=== PATIENT | female | born 1985 ===

== ENCOUNTER 2017-07-16 14:19 | Inpatient (IN) | payer MEDICARE ==
[~2017-07-16] VITALS: Ht 167.6 cm; Wt 59.0 kg
--- NOTE | 2017-07-16 14:22 | ER Report ---
History and Physical Time Seen By MD: 14:21 (DRAKE RETANA MD) HPI/ROS CHIEF COMPLAINT: Unable to eat or drink for the last 4 days HISTORY OF PRESENT ILLNESS:Patient is a 31-year-old female who is visiting [place] from [facility]. She is visiting her cousin who she has not seen in quite some time. 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 This is a potentially life-threatening vascular form of the syndrome which apparently lacks the classic hypermobility but the patient may be predisposed to arterial rupture, intestinal rupture uterine rupture. Patient did not bring any of her medications to the emergency department we are having her call her cousin so that we can get a list of medications. She is also going to sign a consent so we may obtain records from her hospital. I will also see if she has a direct phone number to her primary care provider or the provider who takes care of her Ehler Danlos REVIEW OF SYSTEMS: Constitutional: Subjective fevers no chills Eyes: No discharge. ENT: No sore throat. Dry mouth Cardiovascular: Chest pain and fast heart rate Respiratory: No cough, no shortness of breath. Gastrointestinal: Abdominal pain with nausea and vomiting Genitourinary: No hematuria. Musculoskeletal: Diffuse body aches Skin: No rashes. Neurological: No headache. (DRAKE RETANA MD) Allergies: Coded Allergies: Sulfa (Sulfonamide Antibiotics) (Verified Allergy, Severe, 07/16/17) adhesive tape (Verified Allergy, Severe, 07/16/17) azithromycin (Verified Allergy, Severe, 07/16/17) ketamine (Verified Allergy, Severe, ANAPHYLAXIS, 07/16/17) metoclopramide (Verified Allergy, Severe, 07/16/17) vancomycin (Verified Allergy, Severe, 07/16/17) IV VANCOMYCIN; PATIENT CAN TAKE ORAL erythromycin base (Verified Allergy, Unknown, 07/17/17) Home Meds Reported Medications Naphazoline/Pheniramine (NAPHCON-A EYE DROPS) 15 Ml Soln, 2 GTT OU BID Y for itchy eyes 07/16/17 Ondansetron (ONDANSETRON ODT) 8 Mg Tab.rapdis, 8 MG PO Q6H Y for NAUSEA, TAB 07/16/17 Morphine Sulfate 20 MG/ML Oral Solution (ROXANOL 20 MG/ML) 100 Mg/5 Ml Solution , 20 MG PO Q8H Y for PAIN, ML 07/16/17 Hydrocortisone (Hydrocortisone) 1 % Cream..g., TP BID 07/16/17 Morphine Sulfate 20 MG/ML Oral Solution (ROXANOL 20 MG/ML) 100 Mg/5 Ml Solution , 60 MG PO TID, ML 07/16/17 Sucralfate (SUCRALFATE) 1 Gm Tablet, 1 GM PO QID 07/16/17 Vancomycin Hcl (VANCOMYCIN HCL) 125 Mg Capsule, 125 MG PO Q8H, CAPSULE Has on hand to take as needed with C. difficile infection. Not taking now. 07/16/17 Pyridostigmine [place]ank[place] (PYRIDOSTIGMINE BROMIDE) 60 Mg Tablet, 60 MG PO BID 07/16/17 Budesonide/Formoterol Fumarate (SYMBICORT 160-4.5 MCG INHALER) 10.2 Gm Inh, 2 PUFF INH BID, INH 07/16/17 Omeprazole (OMEPRAZOLE) 20 Mg Capsule.dr, 1 CAP PO BID, CAP 07/16/17 Dicyclomine Hcl (DICYCLOMINE HCL) 20 Mg Tablet, 20 MG PO Q6H 07/16/17 Lubiprostone (AMITIZA) 24 Mcg Capsule, 24 MCG PO BID, CAPSULE 07/16/17 Levothyroxine Sodium (LEVOTHYROXINE SODIUM) 50 Mcg Tablet, 25 MCG PO QDAY, TAB 07/16/17 Diphenhydramine Hcl (DIPHENHYDRAMINE HCL) 25 Mg Capsule, 25-50 MG PO Q4H for itching., CAPSULE 07/16/17 Pregabalin (LYRICA) 150 Mg Capsule, 150 MG PO TID, CAPSULE 07/16/17 Linaclotide (LINZESS) 145 Mcg Capsule, 145 MCG PO DAILY, CAPSULE 07/16/17 Olanzapine (OLANZAPINE) 10 Mg Tablet, 10 MG PO HS 07/16/17 Potassium Chloride (POTASSIUM CHLORIDE) 10 Meq Capsule.er, 10 MEQ PO DAILY 07/16/17 Lorazepam (LORAZEPAM) 1 Mg Tab, 1 TAB PO TID Y for SEIZURE, TAB 07/16/17 Clobetasol Propionate/Emoll (CLOBETASOL EMOLLIENT 0.05% CRM) 15 Gm Cream..g., 0 TP BID 07/16/17 Lipase/Protease/Amylase (CREON DR 6,000 UNITS CAPSULE) 1 Each Capsule.dr, 1 EACH PO 07/16/17 Mirtazapine (MIRTAZAPINE) 15 Mg Tablet, 15 MG PO HS 07/16/17 Naloxone HCl (Narcan) 4 Mg/Actuation [place], 1 SPRAY NS Y for narcotic overdose 07/16/17 Levetiracetam (LEVETIRACETAM) 500 Mg Tab.er.24h, 500 MG PO BID, TAB 07/16/17 Promethazine Hcl (PROMETHAZINE HCL) 25 Mg Tablet, 25 MG PO Q6H Y for NAUSEA, TAB 07/16/17 Ondansetron (ONDANSETRON ODT) 4 Mg Tab.rapdis, 4 MG PO Q8H Y for NAUSEA 07/16/17 Discontinued Reported Medications Hydrocortisone 2.5% Oint (HYDROCORTISONE 2.5% OINT) 453.6 Gm Oint...g., 453.6 GM TP, TUBE 07/16/17 Morphine Sulfate Oral Sln (MORPHINE SULFATE ORAL SLN) 10 Mg/5 Ml Solution, 10 MG PO, ML 07/16/17 Morphine Sulfate (MORPHINE SULFATE) 100 Mg/4 Ml Soln, 100 MG IVPB 07/16/17 Ondansetron (ZOFRAN ODT) 4 Mg Tab.rapdis, 8 MG PO Q12H, TAB.DULCE 07/16/17 Past Medical/Surgical History Either Danlos-type 4. History of multiple abdominal surgeries secondary to the aforementioned Ehler Danlos. Recent diagnosis of endocarditis 8 months ago. 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 She has a history of tremors and seizures. (DRAKE RETANA MD) Constitutional Vital Sign - Last 24 Hours 07/16/17 07/16/17 07/16/17 07/16/17 14:30 14:36 14:39 14:49 Temp 98.9 Pulse 116 118 122 Resp 30 19 B/P (MAP) 126/111 (116) 126/111 Pulse Ox 98 96 O2 Delivery Room Air 07/16/17 07/16/17 07/16/17 07/16/17 14:59 15:00 15:09 15:19 Pulse 118 112 107 Resp 23 9 21 B/P (MAP) 123/113 (116) Pulse Ox 96 98 91 5/607/16/17 07/16/17 07/16/17 15:29 15:30 15:39 16:02 Pulse 107 96 Resp 16 17 B/P (MAP) 111/82 (92) 127/85 (99) Pulse Ox 91 94 07/16/17 07/16/17 07/16/17 07/16/17 16:09 16:14 16:24 16:29 Pulse 89 92 85 87 Resp 20 15 Pulse Ox 94 95 94 98 07/16/17 07/16/17 07/16/17 16:30 16:59 17:00 Pulse 80 Resp 26 B/P (MAP) 115/88 (97) 122/89 (100) Pulse Ox 95 Intake and Output 07/16/17 07/16/17 07/17/17 14:59 22:59 06:59 Intake Total 1105 ml Balance 1105 ml (LAURORA,BETH V DO) Physical Exam General/Constitutional: Patient is awake, somnolent, but responsive. Patient with dry cracked lips. Head: Normocephalic and atraumatic. Eyes: Conjunctival clear, Pupils are equal and reactive to light. Extraocular muscles are intact and symmetrical. Sclera are clear and anicteric. Ears:External canals are clear. Tympanic membranes are clear with normal landmarks and light reflex. Nares: No rhinorrhea or bleeding. Turbinates are pink and moist. Oropharyngeal: Mucous membranes are moist. There is no pharyngeal erythema or exudate. There are no palatal petechiae. Uvula is midline and symmetrical. Neck: Supple, no adenopathy. Cardiovascular: Heart is regular rate and rhythm without audible murmurs, rubs or gallops. Pulmonary: Lungs are clear to auscultation bilaterally. There are no wheezes, rales, or rhonchi. Chest rise is symmetrical. She has diffuse chest wall tenderness. Abdomen: Diffuse abdominal pain without overt peritoneal sounds Extremities: No gross deformities, No peripheral cyanosis. Able to move all 4 extremities. Patient with a hyper flexibility at the joints Neuro: Alert and oriented X3, Cranial nerves 2 thru 12 are intact and symmetrical. Gait function was not tested Skin: No rashes, skin is warm dry and well perfused. Multiple abdominal scars (DRAKE RETANA MD) Medical Decision Making Data Points Result Diagram: 07/18/1752707/18/17527 Laboratory Hematology Test 07/16/17 13:50 07/16/17 14:28 07/16/17 14:50 Urine Opiates Screen Positive Urine Barbiturates Screen Negative Ur Tricyclic Antidepressants Screen Negative Urine Phencyclidine Screen Negative Urine Amphetamines Screen Negative Urine Benzodiazepines Screen Negative Urine Cocaine Screen Negative Urine Cannabinoids Screen Positive Urine Color Yellow Urine Clarity Slightly-cloudy Urine pH 5.0 pH (4.8-9.5) Urine Specific [place] 1.020 Urine Protein Negative mg/dL (NEGATIVE) Urine Glucose (UA) Negative mg/dL (NEGATIVE) Urine Ketones Trace mg/dL (NEGATIVE) Urine Blood Negative (NEGATIVE) Urine Nitrite Negative (NEGATIVE) Urine Bilirubin Negative (NEGATIVE) Urine Urobilinogen 2.0 mg/dL (0.2-1.9) Urine Leukocyte Esterase Negative (NEGATIVE) Urine RBC None /HPF (0-2/HPF) Urine WBC 5 /HPF (0-5/HPF) Urine Squamous Epithelial Cells Many /LPF (</=FEW) Urine Bacteria Few /HPF (NONE-FEW) Urine Mucus Few /HPF (NONE-FEW) Red Blood Count 4.93 M/uL (4.17-5.56) Mean Corpuscular Volume 85.3 fL (80.0-96.0) Mean Corpuscular Hemoglobin 28.5 pg (26.0-33.0) Mean Corpuscular Hemoglobin Concent 33.4 g/dL (32.0-36.0) Red Cell Distribution Width 12.5 % (11.5-14.5) Mean Platelet Volume 8.5 fL (7.2-11.1) Neutrophils (%) (Auto) 74.8 % (39.4-72.5) Lymphocytes (%) (Auto) 17.5 % (17.6-49.6) Monocytes (%) (Auto) 7.1 % (4.1-12.4) Eosinophils (%) (Auto) 0.3 % (0.4-6.7) Basophils (%) (Auto) 0.3 % (0.3-1.4) Nucleated RBC Relative Count (auto) 0.1 /100WBC Neutrophils # (Auto) 6.0 K/uL (2.0-7.4) Lymphocytes # (Auto) 1.4 K/uL (1.3-3.6) Monocytes # (Auto) 0.6 K/uL (0.3-1.0) Eosinophils # (Auto) 0.0 K/uL (0.0-0.5) Basophils # (Auto) 0.0 K/uL (0.0-0.1) Nucleated RBC Absolute Count (auto) 0.00 K/uL Prothrombin Time 13.8 seconds (12.0-14.4) Prothromb Time International Ratio 1.05 Activated Partial Thromboplast Time 62 seconds (23-35) Sodium Level 144 mmol/L (137-145) Potassium Level 3.5 mmol/L (3.5-5.0) Chloride Level 102 mmol/L (98-107) Carbon Dioxide Level 24 mmol/L (22-31) Blood Urea Nitrogen 18 mg/dl (7-18) Creatinine 0.60 mg/dl (0.52-1.04) Glomerular Filtration Rate Calc > 60.0 Random Glucose 104 mg/dl (75-110) Lactate 1.7 mmol/L (0.7-2.1) Calcium Level 9.9 mg/dl (8.4-10.2) Magnesium Level 2.3 mg/dl (1.7-2.2) Total Bilirubin 0.8 mg/dl (0.2-1.3) Aspartate Amino Transf (AST/SGOT) 22 U/L (0-35) Alanine Aminotransferase (ALT/SGPT) 20 U/L (0-56) Alkaline Phosphatase 87 U/L (0-126) Total Creatine Kinase < 20 U/L (30-135) Troponin I < 0.012 ng/ml Total Protein 8.3 gm/dl (6.3-8.2) Albumin 4.5 g/dl (3.5-5.0) Lipase 28 U/L (23-300) Human Chorionic Gonadotropin, Qual Negative (NEGATIVE) Serum Alcohol < 10 mg/dl Chemistry Test 07/16/17 13:50 07/16/17 14:28 07/16/17 14:50 Urine Opiates Screen Positive Urine Barbiturates Screen Negative Ur Tricyclic Antidepressants Screen Negative Urine Phencyclidine Screen Negative Urine Amphetamines Screen Negative Urine Benzodiazepines Screen Negative Urine Cocaine Screen Negative Urine Cannabinoids Screen Positive Urine Color Yellow Urine Clarity Slightly-cloudy Urine pH 5.0 pH (4.8-9.5) Urine Specific [place] 1.020 Urine Protein Negative mg/dL (NEGATIVE) Urine Glucose (UA) Negative mg/dL (NEGATIVE) Urine Ketones Trace mg/dL (NEGATIVE) Urine Blood Negative (NEGATIVE) Urine Nitrite Negative (NEGATIVE) Urine Bilirubin Negative (NEGATIVE) Urine Urobilinogen 2.0 mg/dL (0.2-1.9) Urine Leukocyte Esterase Negative (NEGATIVE) Urine RBC None /HPF (0-2/HPF) Urine WBC 5 /HPF (0-5/HPF) Urine Squamous Epithelial Cells Many /LPF (</=FEW) Urine Bacteria Few /HPF (NONE-FEW) Urine Mucus Few /HPF (NONE-FEW) White Blood Count 8.0 k/uL (4.5-11.0) Red Blood Count 4.93 M/uL (4.17-5.56) Hemoglobin 14.0 g/dL (12.0-16.0) Hematocrit 42.1 % (34.0-47.0) Mean Corpuscular Volume 85.3 fL (80.0-96.0) Mean Corpuscular Hemoglobin 28.5 pg (26.0-33.0) Mean Corpuscular Hemoglobin Concent 33.4 g/dL (32.0-36.0) Red Cell Distribution Width 12.5 % (11.5-14.5) Platelet Count 266 K/uL (150-450) Mean Platelet Volume 8.5 fL (7.2-11.1) Neutrophils (%) (Auto) 74.8 % (39.4-72.5) Lymphocytes (%) (Auto) 17.5 % (17.6-49.6) Monocytes (%) (Auto) 7.1 % (4.1-12.4) Eosinophils (%) (Auto) 0.3 % (0.4-6.7) Basophils (%) (Auto) 0.3 % (0.3-1.4) Nucleated RBC Relative Count (auto) 0.1 /100WBC Neutrophils # (Auto) 6.0 K/uL (2.0-7.4) Lymphocytes # (Auto) 1.4 K/uL (1.3-3.6) Monocytes # (Auto) 0.6 K/uL (0.3-1.0) Eosinophils # (Auto) 0.0 K/uL (0.0-0.5) Basophils # (Auto) 0.0 K/uL (0.0-0.1) Nucleated RBC Absolute Count (auto) 0.00 K/uL Prothrombin Time 13.8 seconds (12.0-14.4) Prothromb Time International Ratio 1.05 Activated Partial Thromboplast Time 62 seconds (23-35) Glomerular Filtration Rate Calc > 60.0 Lactate 1.7 mmol/L (0.7-2.1) Calcium Level 9.9 mg/dl (8.4-10.2) Magnesium Level 2.3 mg/dl (1.7-2.2) Total Bilirubin 0.8 mg/dl (0.2-1.3) Aspartate Amino Transf (AST/SGOT) 22 U/L (0-35) Alanine Aminotransferase (ALT/SGPT) 20 U/L (0-56) Alkaline Phosphatase 87 U/L (0-126) Total Creatine Kinase < 20 U/L (30-135) Troponin I < 0.012 ng/ml Total Protein 8.3 gm/dl (6.3-8.2) Albumin 4.5 g/dl (3.5-5.0) Lipase 28 U/L (23-300) Human Chorionic Gonadotropin, Qual Negative (NEGATIVE) Serum Alcohol < 10 mg/dl Coagulation Test 07/16/17 14:50 Prothrombin Time 13.8 seconds Prothromb Time International Ratio 1.05 Activated Partial Thromboplast Time 62 seconds Toxicology Test 07/16/17 13:50 07/16/17 14:50 Urine Opiates Screen Positive Urine Barbiturates Screen Negative Ur Tricyclic Antidepressants Screen Negative Urine Phencyclidine Screen Negative Urine Amphetamines Screen Negative Urine Benzodiazepines Screen Negative Urine Cocaine Screen Negative Urine Cannabinoids Screen Positive Serum Alcohol < 10 mg/dl Urinalysis Test 07/16/17 14:28 Urine Color Yellow Urine Clarity Slightly-cloudy Urine pH 5.0 pH (4.8-9.5) Urine Specific [place] 1.020 Urine Protein Negative mg/dL (NEGATIVE) Urine Glucose (UA) Negative mg/dL (NEGATIVE) Urine Ketones Trace mg/dL (NEGATIVE) Urine Blood Negative (NEGATIVE) Urine Nitrite Negative (NEGATIVE) Urine Bilirubin Negative (NEGATIVE) Urine Urobilinogen 2.0 mg/dL (0.2-1.9) Urine Leukocyte Esterase Negative (NEGATIVE) Urine RBC None /HPF (0-2/HPF) Urine WBC 5 /HPF (0-5/HPF) Urine Squamous Epithelial Cells Many /LPF (</=FEW) Urine Bacteria Few /HPF (NONE-FEW) Urine Mucus Few /HPF (NONE-FEW) (BETH VILLALOBOS DO) EKG/Imaging EKG Interpretation EKG shows sinus tachycardia with nonspecific T-wave abnormality. No prior EKG to compare to ventricular rate is 118 bpm Monitor Interpretation: Sinus Tachycardia (DRAKE RETANA MD) ED Course/Re-evaluation Clinical Indication for ER IV: IV Access ED Course 07/16/2017 3:06:55 pm patient is essentially here for chest and abdominal pain. I spoke with Dr. Veras who is the patient's physician in [facility]. His direct contact number is [phone]. He mentioned that the patient does visit the hospital frequently usually is admitted once a month. She is on high doses of morphine for pain 60 mg 3 times a day and then 20 mg as needed. Unable to take any of her pain medication or her Keppra. We will give the patient 8 mg of Zofran, 2 mg of Dilaudid 500 mg of Keppra IV. We will perform an abdominal workup including a CT of the chest abdomen pelvis. Patient was signed out to Dr. Villalobos at this time. Decision to Disposition Date: July 16, 2017 Decision to Disposition Time: 17:30 (DRAKE RETANA MD) Clinical Indication for ER IV: Hydration, IV Access ED Course 07/16/2017 3:49:40 pm signed out pending labs and ct. Pts labs are completed and appear stable. Pt currently off to CT. 07/16/2017 4:30:46 pm Pts cat scan of chest abdomen and pelvis do not show any acute acitive ds. pts blood pressure and heart rate are normal after the dilaudid 2mg and 1 L nss. bp 127/86 and HR 86. Page out to Dr. Veras to review pts labs and ct and to discuss d/c plan. Pt has not had any vomiting in the emergency department. will attempt ice chips. 07/16/2017 4:52:07 pm Pt requesting a second dose of dialudid and zofran for return of dry heaving. Failed ice chips 07/16/2017 4:54:[address] Veras called back. States that when pt clinically is vomiting and can not taking her medications she needs to be admitted to the hospital for a few days to rest her stomach and is place on TPN. Dr. Veras statse that she uses zofran 8mg IV and Phenergan Im for the nausea. I reviewed her labs with Dr. Veras today and dispite being normal and having her vitals normalized he feels she needs admission for the tpn and fluids. Also requesting we obtain blood culture thru the port since pt did have endocarditis earlier this year. Does not feel pt needs to be on abx due to pt has hx of c. diff. WIll speak with our hospitalist. 07/16/2017 5:18:[address] Roberts agrees to accept pt. Dr. Veras cell # [phone] Dr. Veras office # [phone] Decision to Disposition Date: July 16, 2017 Decision to Disposition Time: 17:18 (BETH VILLALOBOS DO) Depart Departure Latest Vital Signs Vital Signs Date Time Temp Pulse Resp B/P (MAP) Pulse Ox O2 Delivery O2 Flow Rate FiO2 07/16/17 17:00 122/89 (100) 07/16/17 16:59 80 26 95 07/16/17 14:36 98.9 Room Air (BETH VILLALOBOS DO) Impression: Primary Impression: CYCLICAL VOMITING, INTRACTABLE Additional Impressions: Acute abdominal pain Opioid dependence Kenneth-Danlos syndrome type IV Condition: Condition Unchanged Disposition: Admitted from ER Problem Qualifiers Additional Impressions: Opioid dependence Substance use status: uncomplicated Qualified Codes: F11.20 - Opioid dependence, uncomplicated DRAKE RETANA MD July 16, 2017 14:22 BETH VILLALOBOS DO July 16, 2017 15:49
[2017-07-16] MEDS ORDERED: NS(*) 0.9% 1000 ML BAG 1,000 ML IV ONE ×2 (14:50→16:15)
[2017-07-16] MEDS ORDERED: ONDANSETRON 4 MG/2 ML VIAL IVP ONE ×3 (14:50→16:50)
[2017-07-16] MEDS ORDERED: levETIRAcetam(*)500 MG/5 ML VI 500 MG in NS(*) 0.9% 100 ML BAG 100 ML IVPB ONE (14:50)
[2017-07-16] MEDS ORDERED: HYDROmorphone HCL 2 MG/ML SDV IVP ONE ×2 (15:05→16:50)
[2017-07-16] MEDS ORDERED: NS 0.9% 150 ML BAG 150 ML ONE (15:07)
[2017-07-16] MEDS ORDERED: IOPAMIDOL 76% 75 ML INFUS BTL 75 ML ONE (15:07)
--- NOTE | 2017-07-16 15:08 | EKG ---
[place] [facility] [place] KATHY SHAH : [id number] MR: [id number] V: [id number] EXAM DATE: ORDERING PHYSICIAN: DRAKE RETANA TECHNOLOGIST: JERMAINE Test Reason : CP Blood Pressure : / mmHG Vent. Rate : 118 BPM Atrial Rate : 118 BPM P-R Int : 166 ms QRS Dur : 072 ms QT Int : 330 ms P-R-T Axes : 085 069 067 degrees QTc Int : 462 ms Sinus tachycardia Nonspecific T wave abnormality Abnormal ECG No previous ECGs available Confirmed by YAHAIRA JI ([id number]) on 07/16/2017 4:14:30 PM Referred By: LAINEY Confirmed By:YAHAIRA JI
[2017-07-16 15:17] LABS: PLATELET COUNT, AUTOMATED 266 K/uL (150-450)
[2017-07-16 15:19] LABS: INR 1.05
--- NOTE | 2017-07-16 16:24 | RADIOLOGY IMAGING REPORT ---
[facility] PATIENT NAME: Joshua Loyd : 1985 MR: [id number] V: [id number] EXAM DATE: ORDERING PHYSICIAN: DRAKE RETANA TECHNOLOGIST: Location: [facility] [place] Patient: Joshua Loyd : 1985 Visit/Account:[id number] Date of Sevice: 07/16/2017 Examination: CT chest, abdomen, and pelvis with contrast Comparison: None. History: Chest and abdominal pain. Ehler Danlos type 4 Procedure: Multiplanar contrast-enhanced imaging of the chest, abdomen, and pelvis with 75 mL intrave nous Isovue 370. One of the following dose optimization techniques was utilized in the performance of this exam: Automated exposure control; adjustment of the mA and/or kV according to the patient's siz e; or use of an iterative reconstruction technique. Specific details can be referenced in the [facility]'s radiology CT exam operational policy. Findings: CT chest: Mediastinum: Cardiac chamber size is normal. No pericardial effusion. Infusion port. Main pulmonary a rtery size is normal. No thoracic aortic aneurysm. No mediastinal hemorrhage. No thoracic lymph node enlargement. Lungs and pleura: No focal consolidation or pulmonary nodule. No pneumothorax, pulmonary edema, or p leural effusion. Airways: Negative. Diaphragm: Intact. CT abdomen and pelvis: Liver: Negative Gallbladder and biliary system: Negative Spleen: Negative Pancreas: Negative Adrenal glands: Negative Kidneys and urinary bladder: Negative Vessels: Negative Bowel and mesentery: Gastric bypass. No bowel obstruction. Appendectomy. Minimal stool in colon. No b owel or mesenteric inflammation. Pelvic organs: Negative. Free air/free fluid: None Lymph nodes: Negative Abdominal wall and subcutaneous tissues: Abdominal wall is intact. No focal abnormality within the v isualized subcutaneous soft tissues. Osseous structures: Right clavicle internal fixation. Otherwise unremarkable. IMPRESSION: 1. No findings of active disease in the chest, abdomen, or pelvis. 2. Nonacute findings as described above. Report Dictated By: Brett Couch MD at 07/16/2017 4:10 PM Report E-Signed By: Brett Couch MD at 07/16/2017 4:20 PM [id number]
[2017-07-16] MEDS ORDERED: SUCR1TAB51 PO (16:52)
[2017-07-16] MEDS ORDERED: OLAN10TA25 PO (16:52)
[2017-07-16] MEDS ORDERED: DICY20TA70 PO (16:52)
[2017-07-16] MEDS ORDERED: DIPH-464 PO (16:52)
[2017-07-16] MEDS ORDERED: LIPA1CAP59 PO (16:52)
[2017-07-16] MEDS ORDERED: POTA10CA40 PO (16:52)
[2017-07-16] MEDS ORDERED: VANC125C3 PO (16:52)
[2017-07-16] MEDS ORDERED: CLOB15CR22 TP (16:52)
[2017-07-16] MEDS ORDERED: LINA145C PO (16:52)
[2017-07-16] MEDS ORDERED: MIRT-22 PO (16:52)
[2017-07-16] MEDS ORDERED: PREG150C33 PO (16:52)
[2017-07-16] MEDS ORDERED: MORP10SO10 PO (16:52)
[2017-07-16] MEDS ORDERED: ONDA4TAB9 PO (16:52)
[2017-07-16] MEDS ORDERED: BUDE10.2 INH (16:52)
[2017-07-16] MEDS ORDERED: OMEP-125 PO (16:52)
[2017-07-16] MEDS ORDERED: LEVO50TA86 PO (16:52)
[2017-07-16] MEDS ORDERED: PROM-110 PO (16:52)
[2017-07-16] MEDS ORDERED: HYDR453.8 TP (16:52)
[2017-07-16] MEDS ORDERED: LEVE500T75 PO (16:52)
[2017-07-16] MEDS ORDERED: ONDA4TAB PO (16:52)
[2017-07-16] MEDS ORDERED: [UNRECOGNIZED DRUG - CODE] IVPB (16:52)
[2017-07-16] MEDS ORDERED: LOR1 PO (16:52)
[2017-07-16] MEDS ORDERED: NALO4SPR NS (16:52)
[2017-07-16] MEDS ORDERED: PYRI60TA9 PO (16:52)
[2017-07-16] MEDS ORDERED: LUBI24CA14 PO (16:52)
[2017-07-16] MEDS ORDERED: LORazepam 2 MG/ML VIAL IVP PRN (19:20)
[2017-07-16] MEDS ORDERED: INSULIN HUM LISPRO 100 UN/ML 3 ML VIAL SUBQ PRN (19:30)
[2017-07-16] MEDS ORDERED: [UNRECOGNIZED DRUG - OTHER] IV ONE (20:00)
[2017-07-16] MEDS ORDERED: NS(*) 0.9% 1000 ML BAG 1,000 ML IV PRN ×2 (20:05→23:21)
[2017-07-16] MEDS: ONDANSETRON 4 MG/2 ML VIAL IVP PRN (20:12)
[2017-07-16] MEDS: HYDROmorphone HCL 2 MG/ML SDV IVP PRN ×2 (20:12→22:13)
[2017-07-16] MEDS: diphenhydrAMINE 50 MG/ML VIAL IVP PRN (20:13)
[2017-07-16] MEDS ORDERED: MORP100S32 PO ×2 (20:14)
[2017-07-16] MEDS ORDERED: HYDR28.425 TP (20:14)
[2017-07-16] MEDS ORDERED: NAPOD OU (20:30)
[2017-07-16] MEDS ORDERED: ONDA8TAB98 PO (20:30)
[2017-07-16] MEDS: LEVALBUTEROL 1.25 MG/3 ML NEB NEB PRN (20:53)
[2017-07-16] MEDS: BUDESO/FORMOT 160/4.5 MCG 6 GM INH SCH (20:54)
--- NOTE | 2017-07-16 20:56 | History & Physical ---
History of Present Illness Chief Complaint Intractable nausea and vomiting. History of Present Illness The patient is a 31 year old female from [place] with a very complicated medical history. She has been in [place] about 2 weeks visiting a cousin. 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 She had symptoms at but was not correctly diagnosed with genetic testing until she was 23 years of age. The patient states she spends more time in the hospital than out of it. She is supposed to be on chronic TPN therapy 12 hours daily, but could not get this arranged upon arrival to [place]. Per her report, Dr. Veras, Her PCP, recommended she get in touch with Home Health upon arrival to [place] for facilitation of TPN. As she is not home bound, she could not get a Home Health agency to work with her. The patient has recurrent bouts of intractable nausea and vomiting. She has chronic pain due to multiple abdominal surgeries and multiple fractures related to the Kenneth-Danlos syndrome. She is on high doses of oral morphine and when she can not keep it down, she goes into withdrawal. She also has a seizure disorder and takes Keppra. The patient states that for the past 5 days she has had intractable nausea and vomiting. She has not been able to keep her morphine, Keppra, or any of her medications down. She presented to the ER earlier today with tachycardia. After she received a dose of IV Dilaudid, her VS returned to normal. She was given 2 liters of NS in the ER. Her labs were unremarkable. Drs. Canales and Xochilt talked with her physician, Dr. Veras (see ER note for his phone number), who recommended that the patient be admitted for antiemetics and TPN. Per report from Dr. Lemon, Dr. Veras confirmed that the patient is admitted a least monthly with intractable nausea and vomiting. She usually requires a several day stay to get her symptoms under control. He recommended starting TPN. The patient was recently treated for endocarditis. She has had a chronic indwelling port. Records reviewed from [facility] ([facility] ) note that her port was removed on the 28 of April. Her blood cultures grew out Propionibacterium. She completed a course of IV Ertapenem and then had a new port placed on the left. 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 She can not take vancomycin due to multiple bouts of renal failure while taking the drug. Her last bout of MRSA bacteremia was treated with a new drug, Teflaro. History Problems: (1) History of jejunostomy tube placement (2) Hx pulmonary embolism (3) Hx of deep venous thrombosis Status: Resolved (4) Hx of acute renal failure Comment: Due to vancomycin. 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 (16) Neuropathy Status: Chronic (17) Hx of resection of small bowel (18) Hx MRSA infection (19) History of Bar-en-Y gastric bypass (20) Chronic anemia (21) Anxiety and depression Status: Chronic (22) Chronic pain Status: Chronic (23) UNSPECIFIED ASTHMA, UNCOMPLICATED Status: Chronic (24) Seizure disorder Status: Chronic (25) Failure to thrive Home Meds Reported Medications Naphazoline/Pheniramine (NAPHCON-A EYE DROPS) 15 Ml Soln, 2 GTT OU BID Y for itchy eyes 07/16/17 Ondansetron (ONDANSETRON ODT) 8 Mg Tab.rapdis, 8 MG PO Q6H Y for NAUSEA, TAB 07/16/17 Morphine Sulfate 20 MG/ML Oral Solution (ROXANOL 20 MG/ML) 100 Mg/5 Ml Solution , 20 MG PO Q8H Y for PAIN, ML 07/16/17 Hydrocortisone (Hydrocortisone) 1 % Cream..g., TP BID 07/16/17 Morphine Sulfate 20 MG/ML Oral Solution (ROXANOL 20 MG/ML) 100 Mg/5 Ml Solution , 60 MG PO TID, ML 07/16/17 Sucralfate (SUCRALFATE) 1 Gm Tablet, 1 GM PO QID 07/16/17 Vancomycin Hcl (VANCOMYCIN HCL) 125 Mg Capsule, 125 MG PO Q8H, CAPSULE Has on hand to take as needed with C. difficile infection. Not taking now. 07/16/17 Pyridostigmine [place] (PYRIDOSTIGMINE BROMIDE) 60 Mg Tablet, 60 MG PO BID 07/16/17 Budesonide/Formoterol Fumarate (SYMBICORT 160-4.5 MCG INHALER) 10.2 Gm Inh, 2 PUFF INH BID, INH 07/16/17 Omeprazole (OMEPRAZOLE) 20 Mg Capsule.dr, 1 CAP PO BID, CAP 07/16/17 Dicyclomine Hcl (DICYCLOMINE HCL) 20 Mg Tablet, 20 MG PO Q6H 07/16/17 Lubiprostone (AMITIZA) 24 Mcg Capsule, 24 MCG PO BID, CAPSULE 07/16/17 Levothyroxine Sodium (LEVOTHYROXINE SODIUM) 50 Mcg Tablet, 25 MCG PO QDAY, TAB 07/16/17 Diphenhydramine Hcl (DIPHENHYDRAMINE HCL) 25 Mg Capsule, 25-50 MG PO Q4H for itching., CAPSULE 07/16/17 Pregabalin (LYRICA) 150 Mg Capsule, 150 MG PO TID, CAPSULE 07/16/17 Linaclotide (LINZESS) 145 Mcg Capsule, 145 MCG PO DAILY, CAPSULE 07/16/17 Olanzapine (OLANZAPINE) 10 Mg Tablet, 10 MG PO HS 07/16/17 Potassium Chloride (POTASSIUM CHLORIDE) 10 Meq Capsule.er, 10 MEQ PO DAILY 07/16/17 Lorazepam (LORAZEPAM) 1 Mg Tab, 1 TAB PO TID Y for SEIZURE, TAB 07/16/17 Clobetasol Propionate/Emoll (CLOBETASOL EMOLLIENT 0.05% CRM) 15 Gm Cream..g., 0 TP BID 07/16/17 Lipase/Protease/Amylase (ALLYSSA IVERSON 6,000 UNITS CAPSULE) 1 Each Capsule.dr, 1 EACH PO 07/16/17 Mirtazapine (MIRTAZAPINE) 15 Mg Tablet, 15 MG PO HS 07/16/17 Naloxone HCl (Narcan) 4 Mg/Actuation [place], 1 SPRAY NS Y for narcotic overdose 07/16/17 Levetiracetam (LEVETIRACETAM) 500 Mg Tab.er.24h, 500 MG PO BID, TAB 07/16/17 Promethazine Hcl (PROMETHAZINE HCL) 25 Mg Tablet, 25 MG PO Q6H Y for NAUSEA, TAB 07/16/17 Ondansetron (ONDANSETRON ODT) 4 Mg Tab.rapdis, 4 MG PO Q8H Y for NAUSEA 07/16/17 Discontinued Reported Medications Hydrocortisone 2.5% Oint (HYDROCORTISONE 2.5% OINT) 453.6 Gm Oint...g., 453.6 GM TP, TUBE 07/16/17 Morphine Sulfate Oral Sln (MORPHINE SULFATE ORAL SLN) 10 Mg/5 Ml Solution, 10 MG PO, ML 07/16/17 Morphine Sulfate (MORPHINE SULFATE) 100 Mg/4 Ml Soln, 100 MG IVPB 07/16/17 Ondansetron (ZOFRAN ODT) 4 Mg Tab.rapdis, 8 MG PO Q12H, TAB.DULCE 07/16/17 Allergies: Coded Allergies: Sulfa (Sulfonamide Antibiotics) (Verified Allergy, Severe, 07/16/17) adhesive tape (Verified Allergy, Severe, 07/16/17) azithromycin (Verified Allergy, Severe, 07/16/17) ketamine (Verified Allergy, Severe, ANAPHYLAXIS, 07/16/17) metoclopramide (Verified Allergy, Severe, 07/16/17) vancomycin (Verified Allergy, Severe, 07/16/17) IV VANCOMYCIN; PATIENT CAN TAKE ORAL Patient History: Maternal history of systemic lupus erythematosus (SLE) MOTHER Other Social/Family Hx The patient is single and unemployed. She lives in [place] and gets her medical care there. She is visiting a cousin in [place]. Hx Smoking: No Smoking Status: Never Smoker Exposure to Second Hand Smoke?: No Hx Alcohol Use: Yes Hx Substance Use Disorder: No Social Drug Use: Never Other Social Drugs: takes marijuana prescribed/ CBD oil History of IV Drug Use: No Review of Systems All Systems Reviewed/Normal: Yes, Except as Noted Constitutional: No Fever Neurological: Weakness Cardiovascular: No Chest Pain Respiratory: No Shortness of Breath Gastrointestinal: Nausea, Vomiting Musculoskeletal: Pain Psychiatric: Depression, Anxiety Exam Vital Signs Vital Signs Date Time Temp Pulse Resp B/P (MAP) Pulse Ox O2 Delivery O2 Flow Rate FiO2 07/16/17 21:01 75 18 07/16/17 20:54 92 07/16/17 20:54 Room Air 07/16/17 19:18 98.9 General Appearance: Alert, Awake, No Acute Distress, Other (Appears ill.) Neuro: No Gross deficits Eyes: PERRLA Cardiovascular: Regular Rate and Rhythm Respiratory: Clear to Auscultation GI: Abd Soft and Non-Tender, Other (Multiple well healed abdominal scars. ) Lymph: Cervical Nodes Benign Extremities: Warm, Perfused Integumentary: Skin Intact without Lesion / Mass Psych: Appropriate Mood & Affect Medical Decision Making Data Points Result Diagram: 07/16/17 1450 07/16/17 1450 Item Value Date Time Lactate 1.7 mmol/L 07/16/17 1450 Calcium Level 9.9 mg/dl 07/16/17 1450 Magnesium Level 2.3 mg/dl H 07/16/17 1450 Total Bilirubin 0.8 mg/dl 07/16/17 1450 Aspartate Amino Transf (AST/SGOT) 22 U/L 07/16/17 1450 Alanine Aminotransferase (ALT/SGPT) 20 U/L 07/16/17 1450 Alkaline Phosphatase 87 U/L 07/16/17 1450 Total Protein 8.3 gm/dl H 07/16/17 1450 Albumin 4.5 g/dl 07/16/17 1450 Lipase 28 U/L 07/16/17 1450 Total Creatine Kinase < 20 U/L L 07/16/17 1450 Troponin I < 0.012 ng/ml 07/16/17 1450 Human Chorionic Gonadotropin, Qual Negative 07/16/17 1450 Urine Opiates Screen Positive 07/16/17 1350 Urine Barbiturates Screen Negative 07/16/17 1350 Ur Tricyclic Antidepressants Screen Negative 07/16/17 1350 Urine Phencyclidine Screen Negative 07/16/17 1350 Urine Amphetamines Screen Negative 07/16/17 1350 Urine Benzodiazepines Screen Negative 07/16/17 1350 Urine Cocaine Screen Negative 07/16/17 1350 Urine Cannabinoids Screen Positive 07/16/17 1350 Serum Alcohol < 10 mg/dl 07/16/17 1450 Prothrombin Time 13.8 seconds 07/16/17 1450 Prothromb Time International Ratio 1.05 07/16/17 1450 Activated Partial Thromboplast Time 62 seconds H 07/16/17 1450 EKG / Imaging EKG Interpretation [place] [facility] [place] NAME: JOSHUA LOYD : [id number] MR: [id number] V: [id number] EXAM DATE: ORDERING PHYSICIAN: DRAKE CANALES TECHNOLOGIST: JERMAINE Test Reason : CP Blood Pressure : / mmHG Vent. Rate : 118 BPM Atrial Rate : 118 BPM P-R Int : 166 ms QRS Dur : 072 ms QT Int : 330 ms P-R-T Axes : 085 069 067 degrees QTc Int : 462 ms Sinus tachycardia Nonspecific T wave abnormality Abnormal ECG No previous ECGs available Confirmed by YAHAIRA JI ([id number]) on 07/16/2017 4:14:30 PM Referred By: LAINEY Confirmed By:YAHAIRA JI [id number] T: ULYSSES/ Imaging [place] [facility] [place] NAME: Joshua Loyd : 1985 MR: [id number] V: [id number] EXAM DATE: ORDERING PHYSICIAN: DRAKE CANALES TECHNOLOGIST: Location: [facility] Patient: Joshua Loyd : 1985 Visit/Account:[id number] Date of Sevice: 07/16/2017 Examination: CT chest, abdomen, and pelvis with contrast Comparison: None. History: Chest and abdominal pain. Ehler Danlos type 4 Procedure: Multiplanar contrast-enhanced imaging of the chest, abdomen, and pelvis with 75 mL intravenous Isovue 370. One of the following dose optimization techniques was utilized in the performance of this exam: Automated exposure control; adjustment of the mA and/or kV according to the patient's size ; or use of an iterative reconstruction technique. Specific details can be referenced in the facility's radiology CT exam operational policy. Findings: CT chest: Mediastinum: Cardiac chamber size is normal. No pericardial effusion. Infusion port. Main pulmonary artery size is normal. No thoracic aortic aneurysm. No mediastinal hemorrhage. No thoracic lymph node enlargement. Lungs and pleura: No focal consolidation or pulmonary nodule. No pneumothorax, pulmonary edema, or pleural effusion. Airways: Negative. Diaphragm: Intact. CT abdomen and pelvis: Liver: Negative Gallbladder and biliary system: Negative Spleen: Negative Pancreas: Negative Adrenal glands: Negative Kidneys and urinary bladder: Negative Vessels: Negative Bowel and mesentery: Gastric bypass. No bowel obstruction. Appendectomy. Minimal stool in colon. No bowel or mesenteric inflammation. Pelvic organs: Negative. Free air/free fluid: None Lymph nodes: Negative Abdominal wall and subcutaneous tissues: Abdominal wall is intact. No focal abnormality within the visualized subcutaneous soft tissues. Osseous structures: Right clavicle internal fixation. Otherwise unremarkable. IMPRESSION: 1. No findings of active disease in the chest, abdomen, or pelvis. 2. Nonacute findings as described above. Report Dictated By: Brett Couch MD at 07/16/2017 4:10 PM Report E-Signed By: Brett Couch MD at 07/16/2017 4:20 PM [id number] Pre-Admit Course Medical Record Review: Yes ([facility] reviewed from [facility]) Assessment and Plan Problems: (1) Intractable nausea and vomiting Status: Acute Assessment & Plan: Keep NPO. Will admit for antiemetics and fluids. Will place on TPN as recommended by her PCP. Work up in ER negative. Pt. hospitalized frequently with similar symptoms. Abdominal exam benign. (2) Kenneth-Danlos syndrome type IV Status: Chronic Assessment & Plan: With recurrent fractures and GI issues. (3) Chronic pain Status: Chronic Assessment & Plan: The patient takes Roxanol 60mg tid and also 20mg q 8hrs prn for breakthrough pain. She is also on Lyrica. This was confirmed with her PCP. As she is NPO, will place on IV Dilaudid. (4) Opioid dependence Status: Chronic Assessment & Plan: Will place on IV Dilaudid while NPO. (5) Hypothyroidism Status: Chronic Assessment & Plan: Continue levothyroxine IV. (6) Severe protein-calorie malnutrition Status: Chronic Assessment & Plan: Will place on TPN. (7) Hx of deep venous thrombosis Status: Resolved Assessment & Plan: Start Lovenox for DVT prophylaxis. (8) Seizure disorder Status: Chronic Assessment & Plan: She was given a dose of Keppra IV in ER. Will place on her usual Keppra 500mg bid per IV while NPO. (9) Anxiety and depression Status: Chronic Assessment & Plan: Continue mirtazapine. (10) Port catheter in place Status: Chronic Assessment & Plan: Clean and dry without redness or swelling. (11) Hx of bacterial endocarditis Status: Resolved Assessment & Plan: Her PCP asked for blood cultures as she recently completed a course of ertapenem (See HPI). 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 (15) Neuropathy Status: Chronic Assessment & Plan: The patient takes Lyrica. Time Spent on Plan of Care: < 30 min Venous Thromboembolism Antithrombotics Is Pt On Any Antithrombotics?: Yes Exam Sepsis Risk: No Definite Risk Problem Qualifiers (1) Intractable nausea and vomiting: Vomiting type: unspecified Qualified Codes: R11.2 - Nausea with vomiting, unspecified (2) Opioid dependence: Substance use status: uncomplicated Qualified Codes: F11.20 - Opioid dependence, uncomplicated YAHAIRA BASSETT MD July 16, 2017 20:56
[2017-07-16] MEDS: PANTOPRAZOLE SOD 40 MG IV VIAL IVP SCH (21:45)
[2017-07-16] MEDS: levETIRAcetam(*)500 MG/5 ML VI 500 MG in NS(*) 0.9% 100 ML BAG 100 ML IVPB SCH (21:46)
[2017-07-16] MEDS ORDERED: [UNRECOGNIZED DRUG - OTHER] IV SCH (22:00)
[2017-07-17] MEDS: HYDROmorphone HCL 2 MG/ML SDV IVP PRN ×11 (00:29→23:07)
[2017-07-17] MEDS: ONDANSETRON 4 MG/2 ML VIAL IVP PRN ×6 (00:29→22:57)
[2017-07-17] MEDS: diphenhydrAMINE 50 MG/ML VIAL IVP PRN ×6 (00:30→23:01)
[2017-07-17 03:09] VITALS: BP 86/56
[2017-07-17] MEDS: LEVALBUTEROL 1.25 MG/3 ML NEB NEB PRN ×2 (05:21→16:52)
[2017-07-17] MEDS: BUDESO/FORMOT 160/4.5 MCG 6 GM INH SCH ×2 (05:22→16:52)
[2017-07-17 06:47] LABS: PLATELET COUNT, AUTOMATED 237 K/uL (150-450)
[2017-07-17] MEDS: PROTEASE PO SCH ×3 (09:00→17:00)
[2017-07-17] MEDS ORDERED: LEVOTHYROXINE SOD 100 MCG VIAL IVP SCH (09:00)
[2017-07-17] MEDS: AMYLASE PO SCH ×3 (09:00→17:00)
[2017-07-17] MEDS: LIPASE PO SCH ×3 (09:00→17:00)
[2017-07-17] MEDS: LORazepam 2 MG/ML VIAL IVP PRN ×2 (09:24→18:30)
[2017-07-17] MEDS: KCL (*) 20 MEQ/100 ML PREMIX 100 ML IV SCH ×2 (09:25→13:10)
[2017-07-17] MEDS: PANTOPRAZOLE SOD 40 MG IV VIAL IVP SCH ×2 (09:25→21:54)
[2017-07-17] MEDS: levETIRAcetam(*)500 MG/5 ML VI 500 MG in NS(*) 0.9% 100 ML BAG 100 ML IVPB SCH ×2 (09:25→21:55)
[2017-07-17] MEDS: ENOXAPARIN 40 MG/0.4ML SYR SC SCH (09:26)
[2017-07-17 09:27] VITALS: BP 98/65
--- NOTE | 2017-07-17 10:20 | Hospitalist Progress Note ---
Subjective Progress Notes Subjective She reports some minor improvements, but "I usually vomit most things I try to eat". She states she has some chronic cramping/pain in hands/feet. Physical Exam Vital Signs Date Time Temp Pulse Resp B/P (MAP) Pulse Ox O2 Delivery O2 Flow Rate FiO2 07/17/17 09:27 98.3 91 14 98/65 (76) 95 Room Air General Appearance: Alert, Awake Neuro: Other (slightly tremulous) Cardiovascular: Regular Rate and Rhythm Respiratory: Clear to Auscultation GI: Other (soft/BS present/multiple healed surgical scars) Extremities: Warm, Perfused Result Diagram: 07/17/17 0607/17/17 06 Item Value Date Time Albumin 3.4 g/dl L 07/17/17628 Total Protein 6.1 gm/dl L 07/17/17628 Alkaline Phosphatase 52 U/L 07/17/17628 Alanine Aminotransferase (ALT/SGPT) 16 U/L 07/17/17628 Aspartate Amino Transf (AST/SGOT) 15 U/L 07/17/17628 Total Bilirubin 0.5 mg/dl 07/17/17628 Magnesium Level 2.1 mg/dl 07/17/17 06 Calcium Level 8.8 mg/dl 07/17/17628 Monitor Interpretation: Sinus Tachycardia Assessment and Plan Problems: (1) Intractable nausea and vomiting Status: Acute Assessment & Plan: Some improvements. Will try to see if she can take some oral. Will continue antiemetics and fluids. Will continue on TPN as recommended by her PCP. Work up in ER negative. Pt. hospitalized frequently with similar symptoms. Abdominal exam appears benign. (2) Kenneth-Danlos syndrome type IV Status: Chronic Assessment & Plan: With recurrent fractures and significant GI issues. (3) Chronic pain Status: Chronic Assessment & Plan: The patient takes Roxanol 60mg TID and also 20mg q 8hrs prn for breakthrough pain. She is also on Lyrica. This was confirmed with her PCP. Will continue on IV Dilaudid for now. Will resume her oral meds when she is reliably taking PO. (4) Opioid dependence Status: Chronic Assessment & Plan: On IV Dilaudid until taking PO well. (5) Hypothyroidism Status: Chronic Assessment & Plan: Continue levothyroxine IV. (6) Severe protein-calorie malnutrition Status: Chronic Assessment & Plan: Will continue on TPN. (7) Hx of deep venous thrombosis Status: Resolved Assessment & Plan: Start Lovenox for DVT prophylaxis. (8) Seizure disorder Status: Chronic Assessment & Plan: She was given a dose of Keppra IV in ER. Will place on her usual Keppra 500mg BID per IV until begins taking PO well. (9) Anxiety and depression Status: Chronic Assessment & Plan: Continue mirtazapine. (10) Port catheter in place Status: Chronic (11) Hx of bacterial endocarditis Status: Resolved Assessment & Plan: Her PCP asked for blood cultures as she recently completed a course of ertapenem (See HPI). 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 (15) Neuropathy Status: Chronic Assessment & Plan: The patient takes Lyrica. (16) UTI (urinary tract infection) Status: Acute Assessment & Plan: She has rather minimal pyuria, but culture is growing GNR today. Will cover with IV Rocephin. Exam Sepsis Risk: No Definite Risk Problem Qualifiers (1) Intractable nausea and vomiting: Vomiting type: unspecified Qualified Codes: R11.2 - Nausea with vomiting, unspecified (2) Opioid dependence: Substance use status: uncomplicated Qualified Codes: F11.20 - Opioid dependence, uncomplicated EMERY BASSETT MD July 17, 2017 10:20
[2017-07-17] MEDS ORDERED: cefTRIAXone 1 GM VIAL IVP SCH (12:00)
[2017-07-17 13:10] VITALS: BP 79/49
--- NOTE | 2017-07-17 15:12 | Medical Nutrition Therapy ---
Nutrition Anthropometrics Height (Inches): 66.00 Height (Calculated Centimeters: 167.650169 Weight (Pounds): 130 Weight (Calculated Kilograms): 58.976 Eloy Nutrition Score: Probably Inadequate [place]oy Nutrition Risk Score: 17 Dietary Referral Nutrition Risk Factors: TPN/PPN Nutrition Risk Comment: has been on TPN for 8 years Physical Findings Physical Appearance: BMI 21 Skin Appearance Skin Appearance: Edema Edema Location Modifier: Both Edema Location: Lower Extremity Type of Edema: Degree of Edema: Gastrointestinal Symptoms GI Symtoms: Vomiting Tube Present: Bowel Sounds: Recent Bowel Pattern: Stool Characteristics: Nutritional Diagnosis Nutritional Risk Acuity 1: TPN/PPN Past Medical History: Kenneth-Danlos Syndrome Type IV, hypothyroid, gastroparesis, bowel resection, MRSA Nutritional Acuity: 1-High Nutrition Diagnosis: Altered GI Function Nutrition Etiology: Physiological Causes Nutrition Problem/Etiology/Sym: Aletered GI function related to physiological causes as evidenced by chronic N/V and Ehler's-Danlos Syndrome Type IV Energy Requirement: 1700 ([id number]) Protein Requirement: 59 (1 g/kg) Fluid Requirement: 1770 (30 ml/kg) Diet Type: TPN/PPN Nutrition Intervention: Cont diet as ordered Diet Comment To RSA: PT VEGETARIAN, BRING SMALL PORTIONS Nutritional Support Current Enteral / Parental: TPN Current Tube Feeding Formula C: 50 ml/hr for first hour, 125 ml/hr for 10 hr, 50 ml/hr for last hour Rate: 50 ml/hr for first hour, 125 ml/hr for 10 hr, 50 ml/hr for last hour Current Duration: 12 (Cyclical TPN for 8 yrs) Current Calories: 1377 Current Protein: 56 Total Current Calories: 1377 Nutrition Monitoring & Eval RD Patient Assessment Time: [address] Assessment Type: RD Assessment Patient Nutrition Acuity: 1-High Follow Up Date: July 20, 2017 Nutritional Comment: / Pt with Kenneth-Danlos Syndrome with long hx of TPN admitted with intractable N/V. Started TPN as recommended by PCP from [place]. Currently her prescription is 50ml/hr for first hour, 125 ml/hr for 10 hr, then 50 ml/hr. This provides 81% of estimated energy needs and 94% of protein needs. Pt states that she does lipids Mon, Wed, Fri at home. She says that she can eat for "recreation" but she almost always vomits it up. She is vegetarian. She also says that her Mg, Phos and K often decrease when she has had more vomiting than usual and she goes back on TPN. Be sure to monitor for refeeding syndrome. Will cont to monitor and remain available for consult. -KYRA MATIAS July 17, 2017 15:12
[2017-07-17 19:09] VITALS: BP 102/57
[2017-07-17] MEDS ORDERED: FAT EMULSION 20% 250 ML BAG 250 ML IVPB SCH (21:00)
[2017-07-17] MEDS ORDERED: [UNRECOGNIZED DRUG - OTHER] IVPB SCH (21:00)
[2017-07-17 23:08] VITALS: BP 98/67
[2017-07-18] MEDS: HYDROmorphone HCL 2 MG/ML SDV IVP PRN ×11 (01:04→23:42)
[2017-07-18] MEDS: ONDANSETRON 4 MG/2 ML VIAL IVP PRN ×5 (03:07→21:35)
[2017-07-18] MEDS: LORazepam 2 MG/ML VIAL IVP PRN ×4 (03:12→21:35)
[2017-07-18] MEDS: diphenhydrAMINE 50 MG/ML VIAL IVP PRN ×5 (03:17→21:36)
[2017-07-18 03:29] VITALS: BP 99/56
[2017-07-18] MEDS: BUDESO/FORMOT 160/4.5 MCG 6 GM INH SCH ×2 (05:10→17:08)
[2017-07-18 05:56] LABS: PLATELET COUNT, AUTOMATED 213 K/uL (150-450)
[2017-07-18 08:23] VITALS: BP 109/65
[2017-07-18] MEDS ORDERED: LEVOTHYROXINE SOD 0.025 MG TAB PO SCH (09:00)
[2017-07-18] MEDS ORDERED: INFLUENZA VIRUS VAC 0.5 ML SYR IM ONLY ONE (09:00)
[2017-07-18] MEDS ORDERED: levETIRAcetam 500 MG TAB PO SCH (09:00)
--- NOTE | 2017-07-18 09:42 | Hospitalist Progress Note ---
Subjective Progress Notes Subjective This patient was admitted for nausea and vomiting. Patient Complains of: Cardiovascular: No: Chest Pain Respiratory: No: Shortness of Breath Physical Exam Vital Signs Date Time Temp Pulse Resp B/P (MAP) Pulse Ox O2 Delivery O2 Flow Rate FiO2 07/18/17 09:18 94 Room Air 07/18/17 08:23 97.9 92 16 109/65 (80) Intake and Output 07/19/17 06:59 Intake Total 1132 ml Balance 1132 ml IV Total 1132 ml Cardiovascular: Regular Rate and Rhythm Respiratory: Clear to Auscultation Result Diagram: 07/18/17 0528 07/18/17 0528 Item Value Date Time Urine Culture - Final Complete 07/16/17 1428 Clean Catch Midstream Ur Proteus Mirabilis Monitor Interpretation: Sinus Tachycardia Assessment and Plan Problems: (1) Intractable nausea and vomiting Status: Acute Assessment & Plan: She has continued to complain of nausea, but has had no documented emesis. She reportedly ate 75% of dinner and 100% of lunch yesterday. Zofran is ordered as needed. A CT scan of the abdomen and pelvis was negative. (2) Kenneth-Danlos syndrome type IV Status: Chronic Assessment & Plan: With recurrent fractures and significant GI issues. (3) Chronic pain Status: Chronic Assessment & Plan: The patient takes Roxanol 60mg TID and also 20mg q 8hrs prn for breakthrough pain. She is also on Lyrica. This was confirmed with her PCP. Will continue on IV Dilaudid for now. Will resume her oral meds when she is reliably taking PO. (4) Opioid dependence Status: Chronic Assessment & Plan: On IV Dilaudid until taking PO well. (5) Hypothyroidism Status: Chronic Assessment & Plan: She is on chronic treatment with Synthroid. (6) Severe protein-calorie malnutrition Status: Chronic Assessment & Plan: Will continue on TPN. (7) Hx of deep venous thrombosis Status: Resolved Assessment & Plan: Start Lovenox for DVT prophylaxis. (8) Seizure disorder Status: Chronic Assessment & Plan: She was given a dose of Keppra IV in ER. Will place on her usual Keppra 500mg BID per IV until begins taking PO well. (9) Anxiety and depression Status: Chronic Assessment & Plan: Continue mirtazapine. (10) Port catheter in place Status: Chronic (11) Hx of bacterial endocarditis Status: Resolved Assessment & Plan: Her PCP asked for blood cultures as she recently completed a course of ertapenem (See HPI). 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 (15) Neuropathy Status: Chronic Assessment & Plan: The patient takes Lyrica. (16) Asymptomatic bacteriuria Assessment & Plan: Her urine was negative for leukocytes and negative for nitrates. It was also a contaminated sample with many squamous cells. The culture was positive for Proteus. She received on dose of IV ceftriaxone, which has now been discontinued. Exam Sepsis Risk: No Definite Risk Problem Qualifiers (1) Intractable nausea and vomiting: Vomiting type: unspecified Qualified Codes: R11.2 - Nausea with vomiting, unspecified (2) Opioid dependence: Substance use status: uncomplicated Qualified Codes: F11.20 - Opioid dependence, uncomplicated GEORGE ORTEZ DO July 18, 2017 09:42
[2017-07-18] MEDS: PANTOPRAZOLE SOD 40 MG IV VIAL IVP SCH ×2 (09:44→21:34)
[2017-07-18] MEDS: ENOXAPARIN 40 MG/0.4ML SYR SC SCH (09:44)
[2017-07-18] MEDS: LIPASE PO SCH ×3 (09:44→17:00)
[2017-07-18] MEDS: AMYLASE PO SCH ×3 (09:44→17:00)
[2017-07-18] MEDS: PROTEASE PO SCH ×3 (09:44→17:00)
[2017-07-18] MEDS ORDERED: DEXTROSE 50% 50 ML SYR IVP PRN (10:15)
[2017-07-18] MEDS ORDERED: LEVOTHYROXINE SOD 100 MCG VIAL IVP ONE (10:30)
[2017-07-18] MEDS: LEVOTHYROXINE SOD 100 MCG VIAL IVP SCH (11:02)
[2017-07-18] MEDS: levETIRAcetam(*)500 MG/5 ML VI 500 MG in NS(*) 0.9% 100 ML BAG 100 ML IV SCH ×2 (11:02→21:37)
[2017-07-18 11:18] VITALS: BP 99/55
[2017-07-18 14:52] VITALS: BP 104/69
[2017-07-18 19:32] VITALS: BP 100/60
[2017-07-18] MEDS: [UNRECOGNIZED DRUG - OTHER] IV SCH (22:00)
[2017-07-18] MEDS: LEVALBUTEROL 1.25 MG/3 ML NEB NEB PRN (22:26)
[2017-07-19] MEDS: ONDANSETRON 4 MG/2 ML VIAL IVP PRN ×6 (01:48→22:47)
[2017-07-19] MEDS: LORazepam 2 MG/ML VIAL IVP PRN ×6 (01:51→22:48)
[2017-07-19] MEDS: diphenhydrAMINE 50 MG/ML VIAL IVP PRN ×6 (01:52→22:49)
[2017-07-19] MEDS: HYDROmorphone HCL 2 MG/ML SDV IVP PRN ×11 (01:55→22:49)
[2017-07-19 04:13] VITALS: BP 87/55
[2017-07-19] MEDS: BUDESO/FORMOT 160/4.5 MCG 6 GM INH SCH ×2 (06:06→17:04)
[2017-07-19 08:28] VITALS: BP 93/52
[2017-07-19] MEDS: LIPASE PO SCH ×3 (09:00→17:00)
[2017-07-19] MEDS: PROTEASE PO SCH ×3 (09:00→17:00)
[2017-07-19] MEDS: AMYLASE PO SCH ×3 (09:00→17:00)
[2017-07-19] MEDS: levETIRAcetam(*)500 MG/5 ML VI 500 MG in NS(*) 0.9% 100 ML BAG 100 ML IV SCH ×2 (09:45→20:53)
[2017-07-19] MEDS: ENOXAPARIN 40 MG/0.4ML SYR SC SCH (09:45)
[2017-07-19] MEDS: LEVOTHYROXINE SOD 100 MCG VIAL IVP SCH (09:46)
[2017-07-19] MEDS: PANTOPRAZOLE SOD 40 MG IV VIAL IVP SCH ×2 (09:47→20:51)
[2017-07-19 11:20] VITALS: BP 113/75
--- NOTE | 2017-07-19 13:25 | Medical Nutrition Therapy ---
Nutrition Anthropometrics Height (Inches): 66.00 Height (Calculated Centimeters: 167.318947 Weight (Pounds): 130 Weight (Calculated Kilograms): 58.976 Eloy Nutrition Score: Probably Inadequate Eloy Nutrition Risk Score: 18 Dietary Referral Nutrition Risk Factors: TPN/PPN Nutrition Risk Comment: has been on TPN for 8 years Physical Findings Physical Appearance: BMI 21 Skin Appearance Skin Appearance: Edema Edema Location Modifier: Both Edema Location: Lower Extremity Type of Edema: Degree of Edema: Gastrointestinal Symptoms GI Symtoms: Nausea, Appetite Changes, Bloating Tube Present: Bowel Sounds: Recent Bowel Pattern: Stool Characteristics: Nutritional Diagnosis Nutritional Risk Acuity 1: TPN/PPN Past Medical History: Kenneth-Danlos Syndrome Type IV, hypothyroid, gastroparesis, bowel resection, MRSA Nutritional Acuity: 1-High Nutrition Diagnosis: Altered GI Function Nutrition Etiology: Physiological Causes Nutrition Problem/Etiology/Sym: Aletered GI function related to physiological causes as evidenced by chronic N/V and Ehler's-Danlos Syndrome Type IV Energy Requirement: 1700 ([id number]) Protein Requirement: 59 (1 g/kg) Fluid Requirement: 1770 (30 ml/kg) Diet Type: TPN/PPN Nutrition Intervention: Cont diet as ordered Diet Comment To RSA: PT VEGETARIAN, BRING SMALL PORTIONS Nutritional Support Current Enteral / Parental: TPN Current Tube Feeding Formula C: 50 ml/hr for first hour, 125 ml/hr for 10 hr, 50 ml/hr for last hour Rate: 50 ml/hr for first hour, 125 ml/hr for 10 hr, 50 ml/hr for last hour Current Duration: 12 (Cyclical TPN for 8 yrs) Current Calories: 1377 Current Protein: 56 Total Current Calories: 1377 Nutrition Monitoring & Eval Nutrition Goals: TPN and oral food intake for recreational RD Patient Assessment Time: [address] Assessment Type: RD Re-Assessment Patient Nutrition Acuity: 1-High Follow Up Date: July 20, 2017 Nutritional Comment: 07/17 Pt with Kenneth-Danlos Syndrome with long hx of TPN admitted with intractable N/V. Started TPN as recommended by PCP from [place]. Currently her prescription is 50ml/hr for first hour, 125 ml/hr for 10 hr, then 50 ml/hr. This provides 81% of estimated energy needs and 94% of protein needs. Pt states that she does lipids Mon, Wed, Fri at home. She says that she can eat for "recreation" but she almost always vomits it up. She is vegetarian. She also says that her Mg, Phos and K often decrease when she has had more vomiting than usual and she goes back on TPN. Be sure to monitor for refeeding syndrome. Will cont to monitor and remain available for consult. -EK 07/19: Peformed a physical nutrition assessment to observe pt nutrition status. Began at the head and worked my way down to the upper back. Checked protein status in hair. Hair was dry and brittle, however that could ahve been caused by hair dye and uncomb hair. Checked eyes for olguin spots indicating vitmain A def. Pt had clean moist eyes, negative for vitamin A def. Check nails for iron def. no concern was found. Check temples, clavicle, shoulders, scapula, and spine for muscle wastage. No concerns were found at this time. Continue to monitor pt TPN and recreational eating. -DELMIS LOPEZ July 19, 2017 13:10
[2017-07-19] MEDS ORDERED: CYANOCOBALAMIN 1000MCG/ML VIAL IM ONLY ONE (14:00)
[2017-07-19 14:46] VITALS: BP 100/58
[2017-07-19] MEDS: cefTRIAXone(*) 1 GM VIAL 1 GM in NS(*) 0.9% 100 ML ADDVANT BAG 100 ML IVPB SCH (16:12)
[2017-07-19] MEDS: [UNRECOGNIZED DRUG - OTHER] IV SCH (20:49)
[2017-07-19] MEDS: DIAZEPAM 50 MG/10 ML MDV IVP PRN (20:50)
[2017-07-19] MEDS ORDERED: FAT EMULSION 20% 250 ML BAG 250 ML IVPB SCH (21:00)
[2017-07-19] MEDS ORDERED: ceFAZolin 1 GM VIAL IVP SCH (21:00)
[2017-07-19] MEDS ORDERED: ceFAZolin(*) 1 GM VIAL 1 GM in NS(*) 0.9% 100 ML ADDVANT BAG 100 ML IV SCH (21:00)
[2017-07-19 21:18] VITALS: BP 112/66
--- NOTE | 2017-07-19 22:08 | Hospitalist Progress Note ---
Subjective Progress Notes Subjective Mrs. Loyd is a 31 year old female from [place] with a very complicated medical history. She has been in [place] about 2 weeks visiting a cousin. 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 She had symptoms at but was not correctly diagnosed with genetic testing until she was 23 years of age. The patient states she spends more time in the hospital than out of it. She is supposed to be on chronic TPN therapy 12 hours daily, but could not get this arranged upon arrival to [place]. Per her report, Dr. Oneal, Her PCP, recommended she get in touch with Home Health upon arrival to [place] for facilitation of TPN. As she is not home bound, she could not get a Home Health agency to work with her. The patient has recurrent bouts of intractable nausea and vomiting. She has chronic pain due to multiple abdominal surgeries and multiple fractures related to the Kenneth-Danlos syndrome. She is on high doses of oral morphine and when she can not keep it down, she goes into withdrawal. She also has a seizure disorder and takes Keppra. The patient states that for the past 5 days she has had intractable nausea and vomiting. She has not been able to keep her morphine, Keppra, or any of her medications down. She presented to the ER earlier today with tachycardia. After she received a dose of IV Dilaudid, her VS returned to normal. She was given 2 liters of NS in the ER. Her labs were unremarkable. Drs. Canales and Xochilt talked with her physician, Dr. Oneal (see ER note for his phone number), who recommended that the patient be admitted for antiemetics and TPN. Per report from Dr. Lemon, Dr. Oneal confirmed that the patient is admitted a least monthly with intractable nausea and vomiting. She usually requires a several day stay to get her symptoms under control. He recommended starting TPN. The patient was recently treated for endocarditis. She has had a chronic indwelling port. Records reviewed from [facility] ([facility]) note that her port was removed on the 28 of April. Her blood cultures grew out Propionibacterium. She completed a course of IV Ertapenem and then had a new port placed on the left. 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 She can not take vancomycin due to multiple bouts of renal failure while taking the drug. Her last bout of MRSA bacteremia was treated with a new drug, Teflaro. 07/19: Today patient is afebrile and hemodynamically stable without any significant complaint except dysuria and frequency. Her U/A grew P.mirabilis and sensitive to cephalosporin. She received one dose of Rocephin and was on hold. She is on TPN and she gets Vit.B12 q monthly for her anemia. Her synthroid level is low and she takes 12.5mcq IV. She does not want to change her dose even though she has mild tremor and has diarrhea. Patient Complains of: Neurological: No: Confusion, Weakness, Dizziness Cardiovascular: No: Chest Pain, Palpitations Respiratory: Other, No: Cough, Congestion, Shortness of Breath Gastrointestinal: Nausea, No Vomiting, No Flatus, No Bowel Movement (diarrhea) Genitourinary: Dysuria, No Hematuria Musculoskeletal: No: Pain, Sprain, Strain, Impaired Mobility Physical Exam Vital Signs Date Time Temp Pulse Resp B/P (MAP) Pulse Ox O2 Delivery O2 Flow Rate FiO2 07/19/17 21:18 99.1 76 14 112/66 (81) 95 Room Air Intake and Output 07/20/17 07:00 Intake Total 345 ml Balance 345 ml Intake Oral 240 ml IV Total 105 ml # Voids 1 # Bowel Movements 1 # Emeses 1 General Appearance: Alert, Awake, No Acute Distress, Afebrile Neuro: No Gross deficits Eyes: PERRLA ENT: Normal Cardiovascular: Normal Rhythm & Peripheral Pulses Respiratory: No Respiratory Distress GI: Soft and Non-Tender : Normal Extremities: Soft and Non Tender Integumentary: Skin Intact without Lesion / Mass Psych: Alert & Oriented X3, Appropriate Mood & Affect Result Diagram: 07/18/1752707/18/17527 Monitor Interpretation: Sinus Tachycardia Assessment and Plan Problems: (1) Intractable nausea and vomiting Status: Acute Assessment & Plan: She has continued to complain of nausea, but has had no documented emesis. She reportedly ate 75% of dinner and 100% of lunch yesterday. Zofran is ordered as needed. A CT scan of the abdomen and pelvis was negative. 07/19: She is currently on TPN and I will give her Vit. B12 1mg IM today (2) Kenneth-Danlos syndrome type IV Status: Chronic Assessment & Plan: With recurrent fractures and significant GI issues. (3) Chronic pain Status: Chronic Assessment & Plan: The patient takes Roxanol 60mg TID and also 20mg q 8hrs prn for breakthrough pain. She is also on Lyrica. This was confirmed with her PCP. Will continue on IV Dilaudid for now. Will resume her oral meds when she is reliably taking PO. (4) Opioid dependence Status: Chronic Assessment & Plan: On IV Dilaudid until taking PO well. (5) Hypothyroidism Status: Chronic Assessment & Plan: She is on chronic treatment with Synthroid. 07/19: Her TSH is low0.25 but she does not want to change her Synthroid. I will get her Thyroid panel. (6) Severe protein-calorie malnutrition Status: Chronic Assessment & Plan: Will continue on TPN. (7) Hx of deep venous thrombosis Status: Resolved Assessment & Plan: Start Lovenox for DVT prophylaxis. (8) Seizure disorder Status: Chronic Assessment & Plan: She was given a dose of Keppra IV in ER. Will place on her usual Keppra 500mg BID per IV until begins taking PO well. (9) Anxiety and depression Status: Chronic Assessment & Plan: Continue mirtazapine. (10) Port catheter in place Status: Chronic (11) Hx of bacterial endocarditis Status: Resolved Assessment & Plan: Her PCP asked for blood cultures as she recently completed a course of ertapenem (See HPI). 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 (15) Neuropathy Status: Chronic Assessment & Plan: The patient takes Lyrica. (16) Asymptomatic bacteriuria Status: Acute Assessment & Plan: Her urine was negative for leukocytes and negative for nitrates. It was also a contaminated sample with many squamous cells. The culture was positive for Proteus. She received on dose of IV ceftriaxone, which has now been discontinued. 07/19: I will restart her Rocephin 1gm IV q daily for her UTI after getting urine sample. Condition stable Time Spent on Plan of Care: > 30 min Copies to: MARILEE ONEAL MD Exam Sepsis Risk: No Definite Risk Problem Qualifiers (1) Intractable nausea and vomiting: Vomiting type: unspecified Qualified Codes: R11.2 - Nausea with vomiting, unspecified (2) Opioid dependence: Substance use status: uncomplicated Qualified Codes: F11.20 - Opioid dependence, uncomplicated JESU RODRIGUEZ MD July 19, 2017 22:07
[2017-07-19 23:05] VITALS: BP 90/57
[2017-07-20] MEDS: HYDROmorphone HCL 2 MG/ML SDV IVP PRN ×12 (00:49→23:06)
[2017-07-20] MEDS: diphenhydrAMINE 50 MG/ML VIAL IVP PRN ×6 (02:56→23:06)
[2017-07-20] MEDS: LORazepam 2 MG/ML VIAL IVP PRN ×6 (02:57→23:12)
[2017-07-20] MEDS: ONDANSETRON 4 MG/2 ML VIAL IVP PRN ×6 (02:57→23:06)
[2017-07-20 03:12] VITALS: BP 97/58
[2017-07-20] MEDS: BUDESO/FORMOT 160/4.5 MCG 6 GM INH SCH ×2 (05:34→17:15)
[2017-07-20] MEDS: LEVALBUTEROL 1.25 MG/3 ML NEB NEB PRN ×2 (05:48→17:15)
[2017-07-20 06:07] LABS: PLATELET COUNT, AUTOMATED 286 K/uL (150-450)
[2017-07-20 08:14] VITALS: BP 91/49
[2017-07-20] MEDS: ENOXAPARIN 40 MG/0.4ML SYR SC SCH (09:00)
[2017-07-20] MEDS: LIPASE PO SCH ×3 (09:00→17:00)
[2017-07-20] MEDS: PROTEASE PO SCH ×3 (09:00→17:00)
[2017-07-20] MEDS: AMYLASE PO SCH ×3 (09:00→17:00)
[2017-07-20] MEDS: levETIRAcetam(*)500 MG/5 ML VI 500 MG in NS(*) 0.9% 100 ML BAG 100 ML IV SCH ×2 (10:14→21:02)
[2017-07-20] MEDS: PANTOPRAZOLE SOD 40 MG IV VIAL IVP SCH ×2 (10:15→21:11)
[2017-07-20] MEDS: LEVOTHYROXINE SOD 100 MCG VIAL IVP SCH (10:25)
--- NOTE | 2017-07-20 13:14 | Hospitalist Progress Note ---
Subjective Progress Notes Subjective Mrs. Loyd is a 31 year old female from [place] with a very complicated medical history. She has been in [place] about 2 weeks visiting a cousin. 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 She had symptoms at but was not correctly diagnosed with genetic testing until she was 23 years of age. The patient states she spends more time in the hospital than out of it. She is supposed to be on chronic TPN therapy 12 hours daily, but could not get this arranged upon arrival to [place]. Per her report, Dr. Veras, Her PCP, recommended she get in touch with Home Health upon arrival to [place] for facilitation of TPN. As she is not home bound, she could not get a Home Health agency to work with her. The patient has recurrent bouts of intractable nausea and vomiting. She has chronic pain due to multiple abdominal surgeries and multiple fractures related to the Kenneth-Danlos syndrome. She is on high doses of oral morphine and when she can not keep it down, she goes into withdrawal. She also has a seizure disorder and takes Keppra. The patient states that for the past 5 days she has had intractable nausea and vomiting. She has not been able to keep her morphine, Keppra, or any of her medications down. She presented to the ER earlier today with tachycardia. After she received a dose of IV Dilaudid, her VS returned to normal. She was given 2 liters of NS in the ER. Her labs were unremarkable. Drs. Canales and Xochilt talked with her physician, Dr. Veras (see ER note for his phone number), who recommended that the patient be admitted for antiemetics and TPN. Per report from Dr. Lemon, Dr. Veras confirmed that the patient is admitted a least monthly with intractable nausea and vomiting. She usually requires a several day stay to get her symptoms under control. He recommended starting TPN. The patient was recently treated for endocarditis. She has had a chronic indwelling port. Records reviewed from [facility] ([facility]) note that her port was removed on the 28 of April. Her blood cultures grew out Propionibacterium. She completed a course of IV Ertapenem and then had a new port placed on the left. 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 She can not take vancomycin due to multiple bouts of renal failure while taking the drug. Her last bout of MRSA bacteremia was treated with a new drug, Teflaro. 07/19: Today patient is afebrile and hemodynamically stable without any significant complaint except dysuria and frequency. Her U/A grew P.mirabilis and sensitive to cephalosporin. She received one dose of Rocephin and was on hold. She is on TPN and she gets Vit.B12 q monthly for her anemia. Her synthroid level is low and she takes 12.5mcq IV. She does not want to change her dose even though she has mild tremor and has diarrhea. 07/20: Today the patient is afebrile and hemodynamically stable with c/o abdominal distention. She denies any nausea, vomiting, constipation and diarrhea. She has good BM and denies dysuria. Her repeat U/A is also negative. She is getting TPN here. Patient Complains of: Neurological: No: Confusion, Weakness, Dizziness Cardiovascular: No: Chest Pain, Palpitations Respiratory: No: Cough, Congestion, Shortness of Breath Gastrointestinal: Bowel Movement, No Nausea, No Vomiting, No Flatus Genitourinary: No Dysuria, No Hematuria Musculoskeletal: No: Pain, Sprain, Strain, Impaired Mobility Physical Exam Vital Signs Date Time Temp Pulse Resp B/P (MAP) Pulse Ox O2 Delivery O2 Flow Rate FiO2 07/20/17 08:22 95 Room Air 07/20/17 08:14 98.8 85 12 91/49 (63) General Appearance: Alert, Awake, No Acute Distress, Afebrile Neuro: No Gross deficits Eyes: PERRLA ENT: Normal Cardiovascular: Normal Rhythm & Peripheral Pulses Respiratory: No Respiratory Distress GI: Soft and Non-Tender (but mildly distended without rebound and guarding) Extremities: Soft and Non Tender Integumentary: Skin Intact without Lesion / Mass Psych: Alert & Oriented X3, Appropriate Mood & Affect Result Diagram: 07/20/1753607/20/17536 Monitor Interpretation: Sinus Tachycardia Assessment and Plan Problems: (1) Intractable nausea and vomiting Status: Acute Assessment & Plan: She has continued to complain of nausea, but has had no documented emesis. She reportedly ate 75% of dinner and 100% of lunch yesterday. Zofran is ordered as needed. A CT scan of the abdomen and pelvis was negative. 07/19: She is currently on TPN and I will give her Vit. B12 1mg IM today 07/20: I will get Abdominal XR's today Possible d/c in am if she remains stable (2) Kenneth-Danlos syndrome type IV Status: Chronic Assessment & Plan: With recurrent fractures and significant GI issues. (3) Chronic pain Status: Chronic Assessment & Plan: The patient takes Roxanol 60mg TID and also 20mg q 8hrs prn for breakthrough pain. She is also on Lyrica. This was confirmed with her PCP. Will continue on IV Dilaudid for now. Will resume her oral meds when she is reliably taking PO. (4) Opioid dependence Status: Chronic Assessment & Plan: On IV Dilaudid until taking PO well. (5) Hypothyroidism Status: Chronic Assessment & Plan: She is on chronic treatment with Synthroid. 07/19: Her TSH is low0.25 but she does not want to change her Synthroid. I will get her Thyroid panel. (6) Severe protein-calorie malnutrition Status: Chronic Assessment & Plan: Will continue on TPN. (7) Hx of deep venous thrombosis Status: Resolved Assessment & Plan: Start Lovenox for DVT prophylaxis. (8) Seizure disorder Status: Chronic Assessment & Plan: She was given a dose of Keppra IV in ER. Will place on her usual Keppra 500mg BID per IV until begins taking PO well. (9) Anxiety and depression Status: Chronic Assessment & Plan: Continue mirtazapine. (10) Port catheter in place Status: Chronic (11) Hx of bacterial endocarditis Status: Resolved Assessment & Plan: Her PCP asked for blood cultures as she recently completed a course of ertapenem (See HPI). 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 (15) Neuropathy Status: Chronic Assessment & Plan: The patient takes Lyrica. (16) Asymptomatic bacteriuria Status: Acute Assessment & Plan: Her urine was negative for leukocytes and negative for nitrates. It was also a contaminated sample with many squamous cells. The culture was positive for Proteus. She received on dose of IV ceftriaxone, which has now been discontinued. 07/19: I will restart her Rocephin 1gm IV q daily for her UTI after getting urine sample. Condition stable Time Spent on Plan of Care: > 30 min Exam Sepsis Risk: No Definite Risk Problem Qualifiers (1) Intractable nausea and vomiting: Vomiting type: unspecified Qualified Codes: R11.2 - Nausea with vomiting, unspecified (2) Opioid dependence: Substance use status: uncomplicated Qualified Codes: F11.20 - Opioid dependence, uncomplicated JESU RODRIGUEZ MD July 20, 2017 13:14
--- NOTE | 2017-07-20 14:31 | RADIOLOGY IMAGING REPORT ---
FACILITY: [facility] [place] PATIENT NAME: Joshua Loyd : 1985 MR: [id number] V: [id number] EXAM DATE: ORDERING PHYSICIAN: JESU RODRIGUEZ TECHNOLOGIST: Location: [facility] Patient: Joshua Loyd : 1985 Visit/Account:[id number] Date of Sevice: 07/20/2017 Exam type: KUB SINGLE VIEW ABDOMEN History: distended abd Comparison: CT chest abdomen pelvis July 16, 2017. Findings: The bowel gas pattern is nonspecific. There are surgical clips and lukas in the left upper quadran t abdomen. No gross evidence of organomegaly. Calcified phlebolith is noted in the pelvis. IMPRESSION: 1. Nonspecific bowel gas pattern Report Dictated By: Kat Hernandez MD at 07/20/2017 2:26 PM Report E-Signed By: Kat Hernandez MD at 07/20/2017 2:28 PM WSN:[email or web address]
[2017-07-20] MEDS ORDERED: cefTRIAXone 1 GM VIAL IVP SCH (16:00)
[2017-07-20 16:50] VITALS: BP 98/64
[2017-07-20] MEDS: cefTRIAXone(*) 1 GM VIAL 1 GM in NS(*) 0.9% 100 ML ADDVANT BAG 100 ML IVPB SCH (17:11)
[2017-07-20 20:14] VITALS: BP 100/56
[2017-07-20] MEDS: DIAZEPAM 50 MG/10 ML MDV IVP PRN (20:58)
[2017-07-20] MEDS: [UNRECOGNIZED DRUG - OTHER] IV SCH (21:08)
[2017-07-21] MEDS: HYDROmorphone HCL 2 MG/ML SDV IVP PRN ×6 (01:05→11:37)
[2017-07-21] MEDS: diphenhydrAMINE 50 MG/ML VIAL IVP PRN ×3 (03:07→11:32)
[2017-07-21] MEDS: ONDANSETRON 4 MG/2 ML VIAL IVP PRN ×3 (03:07→11:25)
[2017-07-21] MEDS: LORazepam 2 MG/ML VIAL IVP PRN ×3 (03:08→11:30)
[2017-07-21 05:06] VITALS: BP 88/52
[2017-07-21] MEDS: BUDESO/FORMOT 160/4.5 MCG 6 GM INH SCH (06:03)
[2017-07-21] MEDS: LEVALBUTEROL 1.25 MG/3 ML NEB NEB PRN (06:04)
[2017-07-21 08:03] VITALS: BP 79/41
--- NOTE | 2017-07-21 08:20 | Medical Nutrition Therapy ---
Nutrition Anthropometrics Height (Inches): 66.00 Height (Calculated Centimeters: [phone] Weight (Pounds): 130 Weight (Calculated Kilograms): 58.976 Hx Weight Loss: No Hx Weight Gain: No Eloy Nutrition Score: Probably Inadequate Eloy Nutrition Risk Score: 19 Dietary Referral Nutrition Risk Factors: TPN/PPN Nutrition Risk Comment: has been on TPN for 8 years Physical Findings Physical Appearance: BMI 21 Skin Appearance Skin Appearance: Edema Edema Location Modifier: Both Edema Location: Lower Extremity Type of Edema: Degree of Edema: Gastrointestinal Symptoms GI Symtoms: Nausea, Appetite Changes, Bloating, Diarrhea Tube Present: Bowel Sounds: Recent Bowel Pattern: Stool Characteristics: Nutritional Diagnosis Nutritional Risk Acuity 1: TPN/PPN Past Medical History: Kenneth-Danlos Syndrome Type IV, hypothyroid, gastroparesis, bowel resection, MRSA Nutritional Acuity: 1-High Nutrition Diagnosis: Altered GI Function Nutrition Etiology: Physiological Causes Nutrition Problem/Etiology/Sym: Increased nutrient needs related to physiological causes as evidenced by Ehler's-Danlos Syndrome Type IV. Energy Requirement: 1700 ([id number]) Protein Requirement: 59 (1 g/kg) Fluid Requirement: 1770 (30 ml/kg) Diet Type: TPN/PPN Nutrition Intervention: Cont diet as ordered Diet Comment To RSA: PT VEGETARIAN, BRING SMALL PORTIONS Nutritional Support Current Enteral / Parental: TPN Current Tube Feeding Formula C: 50 ml/hr for first hour, 125 ml/hr for 10 hr, 50 ml/hr for last hour Rate: 50 ml/hr for first hour, 125 ml/hr for 10 hr, 50 ml/hr for last hour Current Duration: 12 (Cyclical TPN for 8 yrs) Current Calories: 1377 Current Protein: 56 Total Current Calories: 1377 Nutrition Monitoring & Eval Nutrition Goals: Eat 50-100% Meal RD Patient Assessment Time: [address] Assessment Type: RD Re-Assessment Patient Nutrition Acuity: 1-High Follow Up Date: July 23, 2017 Nutritional Comment: 07/17 Pt with Kenneth-Danlos Syndrome with long hx of TPN admitted with intractable N/V. Started TPN as recommended by PCP from [place]. Currently her prescription is 50ml/hr for first hour, 125 ml/hr for 10 hr, then 50 ml/hr. This provides 81% of estimated energy needs and 94% of protein needs. Pt states that she does lipids Mon, Wed, Fri at home. She says that she can eat for "recreation" but she almost always vomits it up. She is vegetarian. She also says that her Mg, Phos and K often decrease when she has had more vomiting than usual and she goes back on TPN. Be sure to monitor for refeeding syndrome. Will cont to monitor and remain available for consult. -EK 07/19: Peformed a physical nutrition assessment to observe pt nutrition status. Began at the head and worked my way down to the upper back. Checked protein status in hair. Hair was dry and brittle, however that could ahve been caused by hair dye and uncomb hair. Checked eyes for olguin spots indicating vitmain A def. Pt had clean moist eyes, negative for vitamin A def. Check nails for iron def. no concern was found. Check temples, clavicle, shoulders, scapula, and spine for muscle wastage. No concerns were found at this time. Continue to monitor pt TPN and recreational eating. -DARIA 07/21: Pt continues TPN feeding with lipids emulsion MWF, and recreational eating when desired. No new labs at this time. Pt no longer is experencing N/V. Continue to monitor pt progress. -DELMIS LOPEZ July 21, 2017 08:20
[2017-07-21] MEDS: PANTOPRAZOLE SOD 40 MG IV VIAL IVP SCH (09:22)
[2017-07-21] MEDS: LEVOTHYROXINE SOD 100 MCG VIAL IVP SCH (09:26)
[2017-07-21] MEDS: levETIRAcetam(*)500 MG/5 ML VI 500 MG in NS(*) 0.9% 100 ML BAG 100 ML IV SCH (09:31)
[2017-07-21] MEDS: AMYLASE PO SCH (09:35)
[2017-07-21] MEDS: ENOXAPARIN 40 MG/0.4ML SYR SC SCH (09:35)
[2017-07-21] MEDS: LIPASE PO SCH (09:35)
[2017-07-21] MEDS: PROTEASE PO SCH (09:35)
--- NOTE | 2017-07-21 09:55 | Hospitalist Depart ---
Discharge Summary Reason for Hosp/Final Diag: (1) Intractable nausea and vomiting Status: Acute Hospital Course & Plan: She has continued to complain of nausea, but has had no documented emesis. She did receive TPN for several days, but is now tolerating a regular diet. (2) Kenneth-Danlos syndrome type IV Status: Chronic Hospital Course & Plan: With recurrent fractures and significant GI issues. (3) Chronic pain Status: Chronic Hospital Course & Plan: The patient takes Roxanol 60mg TID and also 20mg q 8hrs prn for breakthrough pain. She is also on Lyrica. (4) Hypothyroidism Status: Chronic Hospital Course & Plan: She is on chronic treatment with Synthroid. (5) Severe protein-calorie malnutrition Status: Chronic (6) Hx of deep venous thrombosis Status: Resolved (7) Seizure disorder Status: Chronic Hospital Course & Plan: She is on chronic treatment with Keppra. (8) Anxiety and depression Status: Chronic Hospital Course & Plan: She is on chronic treatment with mirtazapine. (9) Port catheter in place Status: Chronic (10) Hx of bacterial endocarditis Status: Resolved Hospital Course & Plan: Blood cultures were negative. 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 (14) Neuropathy Status: Chronic Hospital Course & Plan: The patient takes Lyrica. (15) Asymptomatic bacteriuria Status: Acute Hospital Course & Plan: She did receive several doses of ceftriaxone. Departure Latest Vital Signs Vital Signs 07/21/17 08:03 Temp 98.6 Pulse 78 Resp 16 B/P (MAP) 79/41 (54) Pulse Ox 92 O2 Delivery Room Air Weight (Pounds): 130 Weight (Ounces): 0.3 Result Diagram: 07/20/1737 07/20/17536 Condition: Improved Discharge: Home, Self Care Discharge Instructions Home Meds Reported Medications Morphine Sulfate 20 MG/ML Oral Solution (ROXANOL 20 MG/ML) 100 Mg/5 Ml Solution , 20 MG PO Q8H Y for PAIN, ML 07/16/17 Morphine Sulfate 20 MG/ML Oral Solution (ROXANOL 20 MG/ML) 100 Mg/5 Ml Solution , 60 MG PO TID, ML 07/16/17 Budesonide/Formoterol Fumarate (SYMBICORT 160-4.5 MCG INHALER) 10.2 Gm Inh, 2 PUFF INH BID, INH 07/16/17 Omeprazole (OMEPRAZOLE) 20 Mg Capsule.dr, 1 CAP PO BID, CAP 07/16/17 Dicyclomine Hcl (DICYCLOMINE HCL) 20 Mg Tablet, 20 MG PO Q6H 07/16/17 Lubiprostone (AMITIZA) 24 Mcg Capsule, 24 MCG PO BID, CAPSULE 07/16/17 Levothyroxine Sodium (LEVOTHYROXINE SODIUM) 50 Mcg Tablet, 25 MCG PO QDAY, TAB 07/16/17 Diphenhydramine Hcl (DIPHENHYDRAMINE HCL) 25 Mg Capsule, 25-50 MG PO Q4H for itching., CAPSULE 07/16/17 Linaclotide (LINZESS) 145 Mcg Capsule, 145 MCG PO DAILY, CAPSULE 07/16/17 Potassium Chloride (POTASSIUM CHLORIDE) 10 Meq Capsule.er, 10 MEQ PO DAILY 07/16/17 Lorazepam (LORAZEPAM) 1 Mg Tab, 1 TAB PO TID Y for SEIZURE, TAB 07/16/17 Clobetasol Propionate/Emoll (CLOBETASOL EMOLLIENT 0.05% CRM) 15 Gm Cream..g., 0 TP BID 07/16/17 Lipase/Protease/Amylase (ALLYSSA IVERSON 6,000 UNITS CAPSULE) 1 Each Capsule.dr, 1 EACH PO 07/16/17 Mirtazapine (MIRTAZAPINE) 15 Mg Tablet, 15 MG PO HS 07/16/17 Naloxone HCl (Narcan) 4 Mg/Actuation [place], 1 SPRAY NS Y for narcotic overdose 07/16/17 Levetiracetam (LEVETIRACETAM) 500 Mg Tab.er.24h, 500 MG PO BID, TAB 07/16/17 Ondansetron (ONDANSETRON ODT) 4 Mg Tab.rapdis, 4 MG PO Q8H Y for NAUSEA 07/16/17 Discontinued Reported Medications Naphazoline/Pheniramine (NAPHCON-A EYE DROPS) 15 Ml Soln, 2 GTT OU BID Y for itchy eyes 07/16/17 Ondansetron (ONDANSETRON ODT) 8 Mg Tab.rapdis, 8 MG PO Q6H Y for NAUSEA, TAB 07/16/17 Hydrocortisone (Hydrocortisone) 1 % Cream..g., TP BID 07/16/17 Sucralfate (SUCRALFATE) 1 Gm Tablet, 1 GM PO QID 07/16/17 Vancomycin Hcl (VANCOMYCIN HCL) 125 Mg Capsule, 125 MG PO Q8H, CAPSULE Has on hand to take as needed with C. difficile infection. Not taking now. 07/16/17 Pyridostigmine [place] (PYRIDOSTIGMINE BROMIDE) 60 Mg Tablet, 60 MG PO BID 07/16/17 Pregabalin (LYRICA) 150 Mg Capsule, 150 MG PO TID, CAPSULE 07/16/17 Olanzapine (OLANZAPINE) 10 Mg Tablet, 10 MG PO HS 07/16/17 Promethazine Hcl (PROMETHAZINE HCL) 25 Mg Tablet, 25 MG PO Q6H Y for NAUSEA, TAB 07/16/17 Hydrocortisone 2.5% Oint (HYDROCORTISONE 2.5% OINT) 453.6 Gm Oint...g., 453.6 GM TP, TUBE 07/16/17 Morphine Sulfate Oral Sln (MORPHINE SULFATE ORAL SLN) 10 Mg/5 Ml Solution, 10 MG PO, ML 07/16/17 Morphine Sulfate (MORPHINE SULFATE) 100 Mg/4 Ml Soln, 100 MG IVPB 07/16/17 Ondansetron (ZOFRAN ODT) 4 Mg Tab.rapdis, 8 MG PO Q12H, TAB.DULCE 07/16/17 Diet: Regular Activity: As Tolerated Venous Thromboembolism Antithrombotics Is Pt On Any Antithrombotics?: Yes Problem Qualifiers (1) Intractable nausea and vomiting: Vomiting type: unspecified Qualified Codes: R11.2 - Nausea with vomiting, unspecified GEORGE ROTEZ DO July 21, 2017 09:55
[2017-07-21] MEDS ORDERED: HEPARIN FLSH (PORT) 500 UN/5ML IVP PRN (11:55)
[2017-07-21] MEDS: cefTRIAXone(*) 1 GM VIAL 1 GM in NS(*) 0.9% 100 ML ADDVANT BAG 100 ML IVPB SCH (11:57)
== END 2017-07-21 12:55 | disposition home or self-care (01) | DRG 391 ==
LOC: ER 14:23 → OBSVTOIN 17:29 → INTOOBSV 17:29 → UNDOADMOB 17:29 → MED 17:29
PROVIDERS: ADMIT Internal Medicine; ATTEND Internal Medicine
PROC: 3E0336Z Introduction of Nutritional Substance into Peripheral Vein, Percutaneous Approach (ICD-10-PCS; principal; 2017-07-16)
DX: R11.2 Nausea with vomiting, unspecified (principal); E43 Unspecified severe protein-calorie malnutrition; N39.0 Urinary tract infection, site not specified; Q79.6 Ehlers-Danlos syndromes; F11.20 Opioid dependence, uncomplicated; G89.29 Other chronic pain; B96.4 Proteus (mirabilis) (morganii) as the cause of diseases classified elsewhere; E03.9 Hypothyroidism, unspecified; G40.909 Epilepsy, unspecified, not intractable, without status epilepticus; F41.8 Other specified anxiety disorders; K52.9 Noninfective gastroenteritis and colitis, unspecified; J45.909 Unspecified asthma, uncomplicated; R00.0 Tachycardia, unspecified; F45.9 Somatoform disorder, unspecified; G62.9 Polyneuropathy, unspecified; R62.7 Adult failure to thrive; D64.9 Anemia, unspecified; Z68.21 Body mass index [BMI] 21.0-21.9, adult; Z86.718 Personal history of other venous thrombosis and embolism; Z88.1 Allergy status to other antibiotic agents; Z88.2 Allergy status to sulfonamides; Z88.8 Allergy status to other drugs, medicaments and biological substances; Z86.14 Personal history of Methicillin resistant Staphylococcus aureus infection; Z86.711 Personal history of pulmonary embolism
CPT/HCPCS: 36415; 36416; 71260; 74018; 74177; 80305; 80320; 81001; 82040; 82247; 82310; 82374; 82435; 82550; 82565; 82947; 82948; 83605; 83690; 83735; 84075; 84132; 84155; 84295; 84439; 84443; 84450; 84460; 84481; 84484; 84520; 84703; 85025; 85610; 85730; 87040; 87077; 87088; 87186; 93005; 94640; 99285; A9270; C9113; J0696; J1170; J1200; J1642; J1644; J1650; J1953; J2060; J2405; J3360; J3420; J3480; J7030; J7050; Q9967

== ENCOUNTER 2017-08-10 12:23 | Inpatient (IN) | payer MEDICARE, MEDICAID ==
[~2017-08-10] VITALS: Ht 167.6 cm; Wt 60.3 kg
[~2017-08-10 12:23] MED LIST: BUDE10.2 INH; CLOB15CR22 TP; DICY20TA70 PO; DIPH-464 PO; HYDR28.425 TP; HYDR453.8 TP; LEVE500T75 PO; LEVO50TA86 PO; LINA145C PO; LIPA1CAP59 PO; LOR1 PO; LUBI24CA14 PO; MIRT-22 PO; MORP100S32 PO; MORP10SO10 PO; NALO4SPR NS; NAPOD OU; OLAN10TA25 PO; OMEP-125 PO; ONDA4TAB PO; ONDA4TAB9 PO; ONDA8TAB98 PO; POTA10CA40 PO; PREG150C33 PO; PROM-110 PO; PYRI60TA9 PO; SUCR1TAB51 PO; VANC125C3 PO; [UNRECOGNIZED DRUG - CODE] IVPB
--- NOTE | 2017-08-10 12:31 | ER Report ---
History and Physical Time Seen By MD: 12:28 HPI/ROS CHIEF COMPLAINT: Severe dehydration, malnutrition, shortness of breath, hypotension, tachycardia, weakness and fatigue HISTORY OF PRESENT ILLNESS: Patient is a 31-year-old female here with the above complaints in the setting of type IV Ehler Danlos vascular variant (please see below for more information regarding the etiology). Patient was reportedly discharged approximately 2 weeks ago from the hospital however she reports that she has not been on her TPN due to logistical issues. At baseline she is unable to take nutrition or hydration orally so she is primarily relying on her TPN for nutrition (s/p gastrectomy). Patient reports worsening shortness of breath, and is noted to have oxygen saturations in the 80s at time of initial evaluation , rhythm sinus tachycardia with a rate in the 140s, blood pressure initially 70 systolic. 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 Sepsis workup was initiated at time of evaluation upon arrival to the emergency department. Patient was ordered linezolid due to vancomycin allergy, Zosyn, Solu-Cortef, aggressive fluid resuscitation. Patient is afebrile at time of evaluation. REVIEW OF SYSTEMS: Constitutional: No fever, + chills. Eyes: No discharge. ENT: + Dry MM Cardiovascular: No chest pain, no palpitations. Respiratory: + SOB Gastrointestinal: + abdominal pain, nausea, no vomiting. Genitourinary: No hematuria. Musculoskeletal: No back pain. Skin: No rashes. Neurological: No headache. UP TO DATE- Information regarding EDS Type IV Clinical manifestations Vascular EDS (EDS IV) is potentially life-threatening , and differs from the classic and hypermobility forms most dramatically in the increased risk for these patients of spontaneous vascular or visceral rupture and the absence of large joint hyperextensibility. Small (more distal) joints, however, may exhibit mild hypermobility. The prevalence of the vascular form of EDS is not well studied, but estimates based upon available data suggest a frequency of at least 1 in 100,000, accounting for about 4 percent of all EDS cases 15. Arterial rupture may involve the iliac, splenic, or renal arteries; or the aorta. Preexisting aneurysms are rarely detected prior to a rupture, as the aneurysms are typically pseudoaneurysms. Complications in affected individuals also include significant risk for spontaneous rupture of internal organs (such as the intestine and gravid uterus) and muscles. Maternal mortality during is about 12 percent, although delivery is often uneventful [15]. The skin is thin and may appear translucent with a prominent venous pattern ( especially on the chest and abdomen), atrophic scars, increased bruisability, and varicosities. Wound dehiscence may occur postoperatively. However, the skin is only mildly hyperextensible. Minor trauma leads to extensive bruising. Skeletal abnormalities include acrogeria, characterized by a lack of subcutaneous fat in the distal extremities; and a particular facial appearance with prominent eyes, thin face and nose, and lobeless ears. Gingival recession is common. Short stature may be seen but is not typical. Clubfoot has been reported in 12 percent of neonates with vascular EDS, and 3 percent have congenital hip dislocations [15]. Eighty percent of individuals experience a major vascular event or rupture of an internal organ by age 40 years. There is a shortened lifespan with a median age of of 48 years [15]. ?Diagnosis The following criteria have been proposed, with two major criteria having a high specificity and two minor criteria suggesting need for further testing [37]: Major criteria: arterial rupture, intestinal rupture, uterine rupture, positive family history. Minor criteria: thin translucent skin, characteristic facial appearance (thin face, large appearing eyes, thin lips, thin nose), acrogeria, hypermobility of small joints, tendon and muscle rupture, talipes equinovarus, early onset varicosities, pneumothorax, gingival recession. Diagnostic testing: Sequence and deletion/duplication testing of the COL3A1 gene has a high sensitivity. Analysis of type III procollagen from fibroblasts may also be performed. Kyphoscoliosis EDS ?Clinical manifestations Kyphoscoliosis EDS (EDS ) typically presents in newborns with muscle hypotonia associated with joint laxity, often leading to an initial evaluation by a neurologist [38]. Kyphoscoliosis may be present at , and develops in nearly all patients. Progressive kyphoscoliosis can result in respiratory complications and often requires surgery. Patients with this form exhibit joint hypermobility and can experience recurrent joint dislocations. Osteoporosis can be seen, and clubfoot deformity may occur in about 30 percent. The skin is hyperextensible and typically velvety, pale, and translucent, with poor wound healing. About 50 percent may have atrophic scarring and 50 percent may have severe bruising [39]. Vascular fragility may be present and spontaneous vascular rupture may occur. Ocular involvement may occur, unlike in most other forms of EDS, including the presence of scleral fragility, risk of rupture of ocular globe, keratoconus, retinal detachment, and glaucoma. The frequency is estimated at 1 in 100,000 [17]. ?Diagnosis The diagnosis is based upon the presence of at least three major features [39]: Major features: early onset severe congenital hypotonia; progressive scoliosis , which is present at or occurs during the first year of life; generalized joint laxity; and scleral fragility. Minor features: widened atrophic scars, marfanoid habitus, rupture of medium- sized arteries, and mild to moderate delay of attainment of gross motor milestones. Diagnostic testing: The diagnosis can be made by measurement in urine of the ratio of lysyl pyridinoline to hydroxylysylpyridinoline. The mean value of this ratio in kyphoscoliosis EDS is about 6.0, compared with 0.2 in normal individuals. Activity of the enzyme in fibroblasts (with enzyme activity being below 25 percent of normal) and DNA sequence analysis of the PLOD1 gene for the enzyme procollagen-lysine, 2-oxoglutarate 5 dioxygenase-1, can also be performed. Allergies: Coded Allergies: Sulfa (Sulfonamide Antibiotics) (Verified Allergy, Severe, 08/10/17) adhesive tape (Verified Allergy, Severe, 08/10/17) azithromycin (Verified Allergy, Severe, 08/10/17) ketamine (Verified Allergy, Severe, ANAPHYLAXIS, 08/10/17) metoclopramide (Verified Allergy, Severe, 08/10/17) vancomycin (Verified Allergy, Severe, 08/10/17) IV VANCOMYCIN; PATIENT CAN TAKE ORAL erythromycin base (Verified Allergy, Unknown, 08/10/17) Home Meds Reported Medications Pregabalin (LYRICA) 150 Mg Capsule, 150 MG PO TID, CAPSULE 08/10/17 Promethazine Hcl (PROMETHAZINE HCL) 25 Mg Tablet, 25 MG PO Q4H Y for NAUSEA, TAB 08/10/17 Morphine Sulfate 20 MG/ML Oral Solution (ROXANOL 20 MG/ML) 100 Mg/5 Ml Solution , 20 MG PO Q8H Y for PAIN, ML 07/16/17 Morphine Sulfate 20 MG/ML Oral Solution (ROXANOL 20 MG/ML) 100 Mg/5 Ml Solution , 60 MG PO TID, ML 07/16/17 Budesonide/Formoterol Fumarate (SYMBICORT 160-4.5 MCG INHALER) 10.2 Gm Inh, 2 PUFF INH BID, INH 07/16/17 Omeprazole (OMEPRAZOLE) 20 Mg Capsule.dr, 1 CAP PO BID, CAP 07/16/17 Dicyclomine Hcl (DICYCLOMINE HCL) 20 Mg Tablet, 20 MG PO Q6H 07/16/17 Lubiprostone (AMITIZA) 24 Mcg Capsule, 24 MCG PO BID, CAPSULE 07/16/17 Levothyroxine Sodium (LEVOTHYROXINE SODIUM) 50 Mcg Tablet, 25 MCG PO QDAY, TAB 07/16/17 Diphenhydramine Hcl (DIPHENHYDRAMINE HCL) 25 Mg Capsule, 50 MG PO Q2-4H for itching., CAPSULE 07/16/17 Linaclotide (LINZESS) 145 Mcg Capsule, 145 MCG PO DAILY, CAPSULE 07/16/17 Potassium Chloride (POTASSIUM CHLORIDE) 10 Meq Capsule.er, 10 MEQ PO DAILY 07/16/17 Lorazepam (LORAZEPAM) 1 Mg Tab, 1 TAB PO TID Y for SEIZURE, TAB 07/16/17 Clobetasol Propionate/Emoll (CLOBETASOL EMOLLIENT 0.05% CRM) 15 Gm Cream..g., 0 TP BID 07/16/17 Lipase/Protease/Amylase (CREON DR 6,000 UNITS CAPSULE) 1 Each Capsule.dr, 1 EACH PO 07/16/17 Mirtazapine (MIRTAZAPINE) 15 Mg Tablet, 15 MG PO HS 07/16/17 Naloxone HCl (Narcan) 4 Mg/Actuation [place], 1 SPRAY NS Y for narcotic overdose 07/16/17 Levetiracetam (LEVETIRACETAM) 500 Mg Tab.er.24h, 500 MG PO BID, TAB 07/16/17 Ondansetron (ONDANSETRON ODT) 4 Mg Tab.rapdis, 8 MG PO Q4H Y for NAUSEA 07/16/17 Hx Smoking: No Smoking Status: Never Smoker Exposure to Second Hand Smoke?: No Hx Substance Use Disorder: Yes (OPIODS AND POP) Hx Alcohol Use: Yes Constitutional Vital Sign - Last 24 Hours 5/3108/10/17 08/10/17 08/10/17 12:53 13:05 13:05 13:08 Pulse 117 113 122 Resp 10 18 19 Pulse Ox 95 O2 Delivery Nasal Cannula O2 Flow Rate 2.0 08/10/17 08/10/17 08/10/17 08/10/17 13:11 13:49 14:08 14:13 Temp 99.5 Pulse 115 137 98 92 Resp 18 18 7 20 B/P (MAP) 72/60 Pulse Ox 85 O2 Delivery Room Air 08/10/17 08/10/17 08/10/17 08/10/17 14:28 14:43 14:45 14:58 Pulse 91 ??? 86 Resp 10 49 9 B/P (MAP) 100/61 (74) Pulse Ox 97 08/10/17 08/10/17 08/10/17 08/10/17 15:00 15:13 15:15 15:28 Pulse 89 95 Resp 12 9 B/P (MAP) 68/46 (53) 65/41 (49) Pulse Ox 99 99 08/10/17 08/10/17 08/10/17 15:30 15:43 15:45 Pulse 93 Resp 20 B/P (MAP) 71/46 (54) 66/52 (57) Pulse Ox 97 Physical Exam General Appearance: The patient is alert, has no immediate need for airway protection. + moderate distress and ill appearing Eyes: Pupils equal and round no pallor or injection. ENT, Mouth: Mucous membranes are dry Respiratory: There are no retractions, lungs are clear to auscultation. Cardiovascula: + Sinus Tachycardia Gastrointestinal: Abdomen is soft + TTP Neurological: No focal neuro deficits Skin: Warm and dry, no rashes. Musculoskeletal: Neck is supple non tender. Extremities are nontender, nonswollen and have full range of motion. DIFFERENTIAL DIAGNOSIS: After history and physical exam differential diagnosis was considered for dehydration, malnutrition, sepsis, electrolyte abnormality Medical Decision Making Data Points Result Diagram: 08/10/17 1335 08/10/17 1335 Laboratory Hematology Test 08/10/17 13:35 Red Blood Count 4.58 M/uL (4.17-5.56) Mean Corpuscular Volume 82.6 fL (80.0-96.0) Mean Corpuscular Hemoglobin 27.5 pg (26.0-33.0) Mean Corpuscular Hemoglobin Concent 33.2 g/dL (32.0-36.0) Red Cell Distribution Width 13.1 % (11.5-14.5) Mean Platelet Volume 10.1 fL (7.2-11.1) Neutrophils (%) (Auto) 80.4 % (39.4-72.5) Lymphocytes (%) (Auto) 13.8 % (17.6-49.6) Monocytes (%) (Auto) 5.2 % (4.1-12.4) Eosinophils (%) (Auto) 0.1 % (0.4-6.7) Basophils (%) (Auto) 0.5 % (0.3-1.4) Nucleated RBC Relative Count (auto) 0.1 /100WBC Neutrophils # (Auto) 8.6 K/uL (2.0-7.4) Lymphocytes # (Auto) 1.5 K/uL (1.3-3.6) Monocytes # (Auto) 0.6 K/uL (0.3-1.0) Eosinophils # (Auto) 0.0 K/uL (0.0-0.5) Basophils # (Auto) 0.1 K/uL (0.0-0.1) Nucleated RBC Absolute Count (auto) 0.01 K/uL Peripheral Blood Smear Yes Y/N Prothrombin Time 13.5 seconds (12.0-14.4) Prothromb Time International Ratio 1.02 Activated Partial Thromboplast Time 31 seconds (23-35) Sodium Level 139 mmol/L (137-145) Potassium Level 4.1 mmol/L (3.5-5.0) Chloride Level 99 mmol/L (98-107) Carbon Dioxide Level 26 mmol/L (22-31) Blood Urea Nitrogen 15 mg/dl (7-18) Creatinine 1.10 mg/dl (0.52-1.04) Glomerular Filtration Rate Calc 58.3 Random Glucose 119 mg/dl (75-110) Lactate 1.4 mmol/L (0.7-2.1) Calcium Level 9.5 mg/dl (8.4-10.2) Magnesium Level 2.0 mg/dl (1.7-2.2) Total Bilirubin 0.4 mg/dl (0.2-1.3) Aspartate Amino Transf (AST/SGOT) 18 U/L (0-35) Alanine Aminotransferase (ALT/SGPT) 24 U/L (0-56) Alkaline Phosphatase 80 U/L (0-126) Total Protein 7.0 gm/dl (6.3-8.2) Albumin 4.0 g/dl (3.5-5.0) Lipase 50 U/L (23-300) Thyroid Stimulating Hormone (TSH) 5.97 uIU/ml (0.46-4.68) Free Thyroxine 1.09 ng/dl (0.78-2.19) Human Chorionic Gonadotropin, Qual Negative (NEGATIVE) Chemistry Test 08/10/17 13:35 White Blood Count 10.6 k/uL (4.5-11.0) Red Blood Count 4.58 M/uL (4.17-5.56) Hemoglobin 12.6 g/dL (12.0-16.0) Hematocrit 37.8 % (34.0-47.0) Mean Corpuscular Volume 82.6 fL (80.0-96.0) Mean Corpuscular Hemoglobin 27.5 pg (26.0-33.0) Mean Corpuscular Hemoglobin Concent 33.2 g/dL (32.0-36.0) Red Cell Distribution Width 13.1 % (11.5-14.5) Platelet Count 241 K/uL (150-450) Mean Platelet Volume 10.1 fL (7.2-11.1) Neutrophils (%) (Auto) 80.4 % (39.4-72.5) Lymphocytes (%) (Auto) 13.8 % (17.6-49.6) Monocytes (%) (Auto) 5.2 % (4.1-12.4) Eosinophils (%) (Auto) 0.1 % (0.4-6.7) Basophils (%) (Auto) 0.5 % (0.3-1.4) Nucleated RBC Relative Count (auto) 0.1 /100WBC Neutrophils # (Auto) 8.6 K/uL (2.0-7.4) Lymphocytes # (Auto) 1.5 K/uL (1.3-3.6) Monocytes # (Auto) 0.6 K/uL (0.3-1.0) Eosinophils # (Auto) 0.0 K/uL (0.0-0.5) Basophils # (Auto) 0.1 K/uL (0.0-0.1) Nucleated RBC Absolute Count (auto) 0.01 K/uL Peripheral Blood Smear Yes Y/N Prothrombin Time 13.5 seconds (12.0-14.4) Prothromb Time International Ratio 1.02 Activated Partial Thromboplast Time 31 seconds (23-35) Glomerular Filtration Rate Calc 58.3 Lactate 1.4 mmol/L (0.7-2.1) Calcium Level 9.5 mg/dl (8.4-10.2) Magnesium Level 2.0 mg/dl (1.7-2.2) Total Bilirubin 0.4 mg/dl (0.2-1.3) Aspartate Amino Transf (AST/SGOT) 18 U/L (0-35) Alanine Aminotransferase (ALT/SGPT) 24 U/L (0-56) Alkaline Phosphatase 80 U/L (0-126) Total Protein 7.0 gm/dl (6.3-8.2) Albumin 4.0 g/dl (3.5-5.0) Lipase 50 U/L (23-300) Thyroid Stimulating Hormone (TSH) 5.97 uIU/ml (0.46-4.68) Free Thyroxine 1.09 ng/dl (0.78-2.19) Human Chorionic Gonadotropin, Qual Negative (NEGATIVE) Coagulation Test 08/10/17 13:35 Prothrombin Time 13.5 seconds Prothromb Time International Ratio 1.02 Activated Partial Thromboplast Time 31 seconds ED Course/Re-evaluation ED Course Patient is a 31-year-old female here with the above complaints in the setting of type IV Ehler Danlos vascular variant (please see below for more information regarding the etiology). Patient was reportedly discharged approximately 2 weeks ago from the hospital however she reports that she has not been on her TPN due to logistical issues. At baseline she is unable to take nutrition or hydration orally so she is primarily relying on her TPN for nutrition (s/p gastrectomy). Patient reports worsening shortness of breath, and is noted to have oxygen saturations in the 80s at time of initial evaluation, rhythm sinus tachycardia with a rate in the 140s, blood pressure initially 70 systolic. 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 Sepsis workup was initiated at time of initial evaluation upon arrival to the emergency department. Patient was ordered Solu- Cortef, aggressive fluid resuscitation.Cultures pending. There was difficulty in accessing the port but this was remedied with TPA dwelling. Patient was discussed with and admitted to hospitalist service for further hydration and optimization. UP TO DATE- Information regarding EDS Type IV Clinical manifestations Vascular EDS (EDS IV) is potentially life-threatening , and differs from the classic and hypermobility forms most dramatically in the increased risk for these patients of spontaneous vascular or visceral rupture and the absence of large joint hyperextensibility. Small (more distal) joints, however, may exhibit mild hypermobility. The prevalence of the vascular form of EDS is not well studied, but estimates based upon available data suggest a frequency of at least 1 in 100,000, accounting for about 4 percent of all EDS cases 15. Arterial rupture may involve the iliac, splenic, or renal arteries; or the aorta. Preexisting aneurysms are rarely detected prior to a rupture, as the aneurysms are typically pseudoaneurysms. Complications in affected individuals also include significant risk for spontaneous rupture of internal organs (such as the intestine and gravid uterus) and muscles. Maternal mortality during is about 12 percent, although delivery is often uneventful [15]. The skin is thin and may appear translucent with a prominent venous pattern ( especially on the chest and abdomen), atrophic scars, increased bruisability, and varicosities. Wound dehiscence may occur postoperatively. However, the skin is only mildly hyperextensible. Minor trauma leads to extensive bruising. Skeletal abnormalities include acrogeria, characterized by a lack of subcutaneous fat in the distal extremities; and a particular facial appearance with prominent eyes, thin face and nose, and lobeless ears. Gingival recession is common. Short stature may be seen but is not typical. Clubfoot has been reported in 12 percent of neonates with vascular EDS, and 3 percent have congenital hip dislocations [15]. Eighty percent of individuals experience a major vascular event or rupture of an internal organ by age 40 years. There is a shortened lifespan with a median age of of 48 years [15]. ?Diagnosis The following criteria have been proposed, with two major criteria having a high specificity and two minor criteria suggesting need for further testing [37]: Major criteria: arterial rupture, intestinal rupture, uterine rupture, positive family history. Minor criteria: thin translucent skin, characteristic facial appearance (thin face, large appearing eyes, thin lips, thin nose), acrogeria, hypermobility of small joints, tendon and muscle rupture, talipes equinovarus, early onset varicosities, pneumothorax, gingival recession. Diagnostic testing: Sequence and deletion/duplication testing of the COL3A1 gene has a high sensitivity. Analysis of type III procollagen from fibroblasts may also be performed. Kyphoscoliosis EDS ?Clinical manifestations Kyphoscoliosis EDS (EDS ) typically presents in newborns with muscle hypotonia associated with joint laxity, often leading to an initial evaluation by a neurologist [38]. Kyphoscoliosis may be present at , and develops in nearly all patients. Progressive kyphoscoliosis can result in respiratory complications and often requires surgery. Patients with this form exhibit joint hypermobility and can experience recurrent joint dislocations. Osteoporosis can be seen, and clubfoot deformity may occur in about 30 percent. The skin is hyperextensible and typically velvety, pale, and translucent, with poor wound healing. About 50 percent may have atrophic scarring and 50 percent may have severe bruising [39]. Vascular fragility may be present and spontaneous vascular rupture may occur. Ocular involvement may occur, unlike in most other forms of EDS, including the presence of scleral fragility, risk of rupture of ocular globe, keratoconus, retinal detachment, and glaucoma. The frequency is estimated at 1 in 100,000 [17]. Diagnosis The diagnosis is based upon the presence of at least three major features [39]: Major features: early onset severe congenital hypotonia; progressive scoliosis , which is present at or occurs during the first year of life; generalized joint laxity; and scleral fragility. Minor features: widened atrophic scars, marfanoid habitus, rupture of medium- sized arteries, and mild to moderate delay of attainment of gross motor milestones. Diagnostic testing: The diagnosis can be made by measurement in urine of the ratio of lysyl pyridinoline to hydroxylysylpyridinoline. The mean value of this ratio in kyphoscoliosis EDS is about 6.0, compared with 0.2 in normal individuals. Activity of the enzyme in fibroblasts (with enzyme activity being below 25 percent of normal) and DNA sequence analysis of the PLOD1 gene for the enzyme procollagen-lysine, 2-oxoglutarate 5 dioxygenase-1, can also be performed. Decision to Disposition Date: August 10, 2017 Decision to Disposition Time: 17:09 Depart Departure Latest Vital Signs Vital Signs Date Time Temp Pulse Resp B/P (MAP) Pulse Ox O2 Delivery O2 Flow Rate FiO2 08/10/17 15:45 66/52 (57) 08/10/17 15:43 93 20 97 08/10/17 13:49 99.5 Room Air 08/10/17 13:05 2.0 Impression: Primary Impression: Dehydration Additional Impression: Failure to thrive Condition: Condition Unchanged Disposition: Admitted from ER Problem Qualifiers MIKE RUBIO DO August 10, 2017 12:31
[2017-08-10] MEDS ORDERED: NS 0.9% IV ONE (12:45)
[2017-08-10] MEDS ORDERED: PIPERACILLIN/TAZO*3.375GM VIAL 3.375 GM in NS(*) 0.9% 100 ML ADDVANT BAG 100 ML IVPB ONE (12:45)
[2017-08-10] MEDS ORDERED: HYDROCORTISONE 100 MG/2 ML IVP ONE (12:45)
[2017-08-10] MEDS ORDERED: LINEZOLID 600 MG/300 ML PREMIX 300 ML IVPB ONE (12:50)
[2017-08-10] MEDS ORDERED: ALBUTEROL/IPRATROPIUM 3 ML NEB ONE (13:03)
[2017-08-10] MEDS ORDERED: ALBUTEROL/IPRATROPIUM 3 ML NEB NEB ONE (13:05)
--- NOTE | 2017-08-10 13:20 | EKG ---
FACILITY: [facility] PATIENT NAME: KATHY SHAH : [id number] MR: [id number] V: [id number] EXAM DATE: ORDERING PHYSICIAN: MIKE RUBIO TECHNOLOGIST: Test Reason : Blood Pressure : / mmHG Vent. Rate : 117 BPM Atrial Rate : 117 BPM P-R Int : 148 ms QRS Dur : 064 ms QT Int : 324 ms P-R-T Axes : 086 070 098 degrees QTc Int : 451 ms Sinus tachycardia Biatrial enlargement Septal infarct , age undetermined Diffuse, non-specific T flattening When compared with ECG of 16-JUL-2017 15:02, Relatively unchanged Confirmed by ANISH ROMANO ([id number]) on 08/10/2017 2:45:53 PM Referred By: Confirmed By:ANISH ROMANO
[2017-08-10 13:59] LABS: INR 1.02
--- NOTE | 2017-08-10 14:06 | RADIOLOGY IMAGING REPORT ---
FACILITY: [facility] PATIENT NAME: Joshua Loyd : 1985 MR: [id number] V: [id number] EXAM DATE: ORDERING PHYSICIAN: MIKE RUBIO TECHNOLOGIST: Location: [facility] Patient: Joshua Loyd : 1985 Visit/Account:[id number] Date of Sevice: 08/10/2017 Technique: CHEST PA AND LAT HISTORY: Shortness of breath Comparison studies: None FINDINGS: Present is a left chest port with the tip overlying the high right atrium. The lungs are c lear. No pleural effusion. The cardiomediastinal silhouette is unremarkable. Plate and screw fixat ion traverses the proximal and mid right clavicle. IMPRESSION: 1. No acute cardiopulmonary process. Report Dictated By: Oliver Reynolds DO at 08/10/2017 2:02 PM Report E-Signed By: Oliver Reynolds DO at 08/10/2017 2:03 PM WSN:[id number]
[2017-08-10 14:12] LABS: PLATELET COUNT, AUTOMATED 241 K/uL (150-450)
[2017-08-10] MEDS ORDERED: ALTEPLASE RECOMB 2 MG VIAL IVP ONE ×2 (15:20→15:55)
[2017-08-10] MEDS ORDERED: ONDANSETRON 4 MG/2 ML VIAL IVP ONE (15:50)
[2017-08-10] MEDS ORDERED: HEPARIN FLSH (PORT) 500 UN/5ML IVP PRN (17:00)
[2017-08-10] MEDS ORDERED: ALBUTEROL 2.5 MG/3 ML NEB NEB PRN (17:10)
[2017-08-10] MEDS ORDERED: DICYCLOMINE HCL 10 MG CAP PO PRN (17:10)
[2017-08-10] MEDS ORDERED: diphenhydrAMINE 25 MG CAP PO PRN (17:10)
[2017-08-10] MEDS ORDERED: INFLUENZA VIRUS VAC 0.5 ML SYR IM ONLY ONE (17:10)
[2017-08-10] MEDS ORDERED: ACETAMINOPHEN(*)1000 MG/100 ML 100 ML IVPB PRN (17:10)
[2017-08-10 17:20] VITALS: BP 76/44
[2017-08-10] MEDS ORDERED: PROM-110 PO (17:48)
[2017-08-10] MEDS ORDERED: PREG150C33 PO (17:49)
--- NOTE | 2017-08-10 17:56 | History & Physical ---
History of Present Illness History of Present Illness 31 year old female from [place] with a very complicated medical history. She has been in [place] about 4 weeks visiting a cousin. She was hospitalized at [facility] from 07/16 to 07/21 for N/V and not having access to her nightly TPN. 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 She had symptoms at but was not correctly diagnosed with genetic testing until she was 23 years of age. The patient states she spends more time in the hospital than out of it. She is supposed to be on chronic TPN therapy 12 hours daily, but has not been able to have it arranged since being in [place]. She reports chills for 5 days. Today she was very weak and passed out with standing up. She denies dysuria or cough. She had SOB last night, that improved with breathing treatments. In the ER, they had not been able to get access to her port. She currently has Cathflo in it. History Problems: (1) Somatization disorder (2) Gastroparesis (3) Hx pulmonary embolism Status: Chronic (4) Hx of acute renal failure (5) Narcotic dependency, continuous (6) History of jejunostomy tube placement (7) Failure to thrive (8) Hx MRSA infection (9) Chronic anemia (10) Hx of fracture of clavicle (11) Hypothyroidism Status: Chronic (12) Neuropathy Status: Chronic (13) Seizure disorder Status: Chronic (14) Severe protein-calorie malnutrition Status: Chronic (15) Chronic pain Status: Chronic (16) Kenneth-Danlos syndrome type IV Status: Chronic (17) Anxiety and depression Status: Chronic (18) Hx of deep venous thrombosis Status: Resolved (19) Port catheter in place Status: Chronic (20) Hx of bacterial endocarditis Status: Resolved (21) 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 (23) UNSPECIFIED ASTHMA, UNCOMPLICATED Status: Chronic (24) Hx of resection of small bowel (25) History of Bar-en-Y gastric bypass Home Meds Reported Medications Morphine Sulfate 20 MG/ML Oral Solution (ROXANOL 20 MG/ML) 100 Mg/5 Ml Solution , 20 MG PO Q8H Y for PAIN, ML 07/16/ Morphine Sulfate 20 MG/ML Oral Solution (ROXANOL 20 MG/ML) 100 Mg/5 Ml Solution , 60 MG PO TID, ML 07/16/17 Budesonide/Formoterol Fumarate (SYMBICORT 160-4.5 MCG INHALER) 10.2 Gm Inh, 2 PUFF INH BID, INH 07/16/17 Omeprazole (OMEPRAZOLE) 20 Mg Capsule.dr, 1 CAP PO BID, CAP 07/16/17 Dicyclomine Hcl (DICYCLOMINE HCL) 20 Mg Tablet, 20 MG PO Q6H 07/16/17 Lubiprostone (AMITIZA) 24 Mcg Capsule, 24 MCG PO BID, CAPSULE 07/16/17 Levothyroxine Sodium (LEVOTHYROXINE SODIUM) 50 Mcg Tablet, 25 MCG PO QDAY, TAB 07/16/17 Diphenhydramine Hcl (DIPHENHYDRAMINE HCL) 25 Mg Capsule, 25-50 MG PO Q4H for itching., CAPSULE 07/16/17 Linaclotide (LINZESS) 145 Mcg Capsule, 145 MCG PO DAILY, CAPSULE 07/16/17 Potassium Chloride (POTASSIUM CHLORIDE) 10 Meq Capsule.er, 10 MEQ PO DAILY 07/16/17 Lorazepam (LORAZEPAM) 1 Mg Tab, 1 TAB PO TID Y for SEIZURE, TAB 07/16/17 Clobetasol Propionate/Emoll (CLOBETASOL EMOLLIENT 0.05% CRM) 15 Gm Cream..g., 0 TP BID 07/16/17 Lipase/Protease/Amylase (CREON DR 6,000 UNITS CAPSULE) 1 Each Capsule.dr, 1 EACH PO 07/16/17 Mirtazapine (MIRTAZAPINE) 15 Mg Tablet, 15 MG PO HS 07/16/17 Naloxone HCl (Narcan) 4 Mg/Actuation [place], 1 SPRAY NS Y for narcotic overdose 07/16/17 Levetiracetam (LEVETIRACETAM) 500 Mg Tab.er.24h, 500 MG PO BID, TAB 07/16/17 Ondansetron (ONDANSETRON ODT) 4 Mg Tab.rapdis, 4 MG PO Q8H Y for NAUSEA 07/16/17 Allergies: Coded Allergies: Sulfa (Sulfonamide Antibiotics) (Verified Allergy, Severe, 08/10/17) adhesive tape (Verified Allergy, Severe, 08/10/17) azithromycin (Verified Allergy, Severe, 08/10/17) ketamine (Verified Allergy, Severe, ANAPHYLAXIS, 08/10/17) metoclopramide (Verified Allergy, Severe, 08/10/17) vancomycin (Verified Allergy, Severe, 08/10/17) IV VANCOMYCIN; PATIENT CAN TAKE ORAL erythromycin base (Verified Allergy, Unknown, 08/10/17) Patient History: Maternal history of systemic lupus erythematosus (SLE) MOTHER Hx Smoking: No Smoking Status: Never Smoker Exposure to Second Hand Smoke?: No Hx Alcohol Use: Yes Hx Substance Use Disorder: No Social Drug Use: Never Review of Systems All Systems Reviewed/Normal: Yes, Except as Noted Exam Vital Signs Vital Signs Date Time Temp Pulse Resp B/P (MAP) Pulse Ox O2 Delivery O2 Flow Rate FiO2 08/10/17 17:20 98.4 82 16 76/44 (55) 98 Nasal Cannula 1.0 General Appearance: Alert, Awake, No Acute Distress Neuro: No Gross deficits Eyes: PERRLA ENT: Moist Mucous Membranes Cardiovascular: Regular Rate and Rhythm Respiratory: Clear to Auscultation GI: Abd Soft and Non-Tender (Multiple scars) Extremities: Warm, Perfused, No Edema Integumentary: No Jaundice, No Cyanosis Medical Decision Making Data Points Result Diagram: 08/10/17 1335 08/10/17 1335 Item Value Date Time Thyroid Stimulating Hormone (TSH) 5.97 uIU/ml H 08/10/17 1335 Free Thyroxine 1.09 ng/dl 08/10/17 1335 Magnesium Level 2.0 mg/dl 08/10/17 1335 Human Chorionic Gonadotropin, Qual Negative 08/10/17 1335 Total Bilirubin 0.4 mg/dl 08/10/17 1335 Aspartate Amino Transf (AST/SGOT) 18 U/L 08/10/17 1335 Alanine Aminotransferase (ALT/SGPT) 24 U/L 08/10/17 1335 Alkaline Phosphatase 80 U/L 08/10/17 1335 Lactate 1.4 mmol/L 08/10/17 1335 Creatinine 0.60 mg/dl 07/20/17 0537 Blood Urea Nitrogen 12 mg/dl 07/20/17 0537 Lipase 50 U/L 08/10/17 1335 Neutrophils (%) (Auto) 80.4 % H 08/10/17 1335 Lymphocytes (%) (Auto) 13.8 % L 08/10/17 1335 Monocytes (%) (Auto) 5.2 % 08/10/17 1335 Eosinophils (%) (Auto) 0.1 % L 08/10/17 1335 Basophils (%) (Auto) 0.5 % 08/10/17 1335 Nucleated RBC Relative Count (auto) 0.1 /100WBC 08/10/17 1335 Neutrophils # (Auto) 8.6 K/uL H 08/10/17 1335 Prothromb Time International Ratio 1.02 08/10/17 1335 EKG / Imaging EKG Interpretation Vent. Rate : 117 BPM Atrial Rate : 117 BPM P-R Int : 148 ms QRS Dur : 064 ms QT Int : 324 ms P-R-T Axes : 086 070 098 degrees QTc Int : 451 ms Sinus tachycardia Biatrial enlargement Septal infarct , age undetermined Diffuse, non-specific T flattening When compared with ECG of 16-JUL-2017 15:02, Relatively unchanged Confirmed by ANISH ROMANO ([id number]) on 08/10/2017 2:45:53 PM Imaging CXR - 1. No acute cardiopulmonary process. Assessment and Plan Problems: (1) Dehydration Status: Acute Assessment & Plan: She presented with weakness and passing out with standing today. She is supposed to be on 12 hours of TPN daily, but hasn't received it for about 4 weeks except for 3 days while in the with last dose being the 10th. Her lactate is normal, she has a normal WBC and is afebrile. Her heart rate came down in the ER without intervention, but BP is still low. They are trying to get access to her port. Once she has access, then will give her weight based IVF and recheck labs tomorrow. She reports that she thinks she is getting septic and wants antibiotics, but based on my evaluation it is safe to wait. She understands that she will not be receiving antibiotics when admitted and was offered to be transferred. Based on records from a recent ER visit in the [facility], she had similar complaints, desire for admission and antibiotics. I explained that she is at high risk for drug resistance bacteria (h/o MRSA), so we need to prudent. Blood cultures are pending. CXR is clear. UA is pending. Will get a CRP tomorrow to establish a baseline. (2) Severe protein-calorie malnutrition Status: Chronic Assessment & Plan: She is supposed to get TPN for 12 hours daily. Will volume resuscitate then consider starting. See above. Will get a prealbumin to establish a baseline. (3) Chronic pain Status: Chronic Assessment & Plan: The patient takes Roxanol 60mg tid and also 20mg q 8hrs prn for breakthrough pain. She is also on Lyrica. Will resume Roxanol, but will give prn and not scheduled for now. Continue Lyrica. (4) Seizure disorder Status: Chronic Assessment & Plan: Continue Keppra (5) Hx pulmonary embolism Status: Chronic Assessment & Plan: She is not on chronic anticoagulation. Will give Lovenox 40mg a day for prophylaxis. (6) Kenneth-Danlos syndrome type IV Status: Chronic Assessment & Plan: With recurrent fractures and GI issues. (7) Hx of bacterial endocarditis Status: Resolved Assessment & Plan: Cultures negative on 07/16. Cultures pending. (8) Recurrent Clostridium difficile diarrhea Status: Chronic Assessment & Plan: She recently had a fecal transplant in April and has had a decrease in her diarrhea with this. (9) UNSPECIFIED ASTHMA, UNCOMPLICATED Status: Chronic Assessment & Plan: Continue Symbicort and Xopenex. Venous Thromboembolism Antithrombotics Is Pt On Any Antithrombotics?: No Exam Sepsis Risk: No Definite Risk ANISH ROMANO MD August 10, 2017 17:56
[2017-08-10] MEDS ORDERED: LEVALBUTEROL 1.25 MG/3 ML NEB NEB PRN (18:40)
[2017-08-10] MEDS: ONDANSETRON 4 MG/2 ML VIAL IVP PRN (18:48)
[2017-08-10] MEDS: NS(*) 0.9% 1000 ML BAG 1,000 ML IV PRN ×2 (18:57→21:43)
[2017-08-10 19:01] VITALS: BP 78/50
[2017-08-10] MEDS: MORPHINE 10 MG/5 ML UDC PO PRN (19:04)
[2017-08-10 20:00] VITALS: BP 101/57
[2017-08-10] MEDS: PROMETHAZINE 25 MG/ML 1 ML AMP IVP PRN (20:37)
--- NOTE | 2017-08-10 20:52 | Miscellaneous Provider Note ---
Miscellaneous Provider Note Note The patient expressed frustration about her care, so I went to talk to her. She is frustrated that she isn't getting TPN and that her medications are not all IV. I explained that she never complained of worsening nausea and vomiting to me, so I put her back on her usual medications. Upon looking at the ER providers note, there is no mention of worsening nausea and vomiting, either. She, now, reports that she has been vomiting profusely for the last 4 days. She did have a 50cc emesis upon reaching the medical floor. I have agreed to change her Keppra, PPI and Benadryl to IV, but feel we can leave the morphine as a liquid because she can absorb it through the mucosa. I, also, explained that we will not start TPN until we have adequately hydrated her, and we won't make that determination until we look at labs tomorrow. However, her most recent SBP was 105, so it appears that fluids are helping. She remains afebrile. ANISH ROMANO MD August 10, 2017 20:51
[2017-08-10 21:00] VITALS: BP 91/57
[2017-08-10] MEDS: MIRTAZAPINE 15 MG TAB PO SCH (21:00)
[2017-08-10] MEDS ORDERED: PANTOPRAZOLE SOD 40 MG TABEC PO SCH (21:00)
[2017-08-10] MEDS ORDERED: levETIRAcetam 500 MG TAB PO SCH (21:00)
[2017-08-10] MEDS: levETIRAcetam(*)500 MG/5 ML VI 500 MG in NS(*) 0.9% 100 ML BAG 100 ML IV SCH (21:43)
[2017-08-10] MEDS: diphenhydrAMINE 50 MG/ML VIAL IVP PRN (21:44)
[2017-08-10] MEDS: PANTOPRAZOLE SOD 40 MG IV VIAL IVP SCH (21:47)
[2017-08-10 22:00] VITALS: BP 83/37
[2017-08-11] MEDS: ONDANSETRON 4 MG/2 ML VIAL IVP PRN ×3 (00:21→21:56)
[2017-08-11] MEDS: MORPHINE 10 MG/5 ML UDC PO PRN ×3 (00:21→17:04)
[2017-08-11 05:21] VITALS: BP 89/59
[2017-08-11] MEDS: LEVOTHYROXINE SOD 0.025 MG TAB PO SCH (05:26)
[2017-08-11] MEDS: PROMETHAZINE 25 MG/ML 1 ML AMP IVP PRN ×2 (05:26→15:29)
[2017-08-11] MEDS: BUDESO/FORMOT 160/4.5 MCG 6 GM INH SCH ×2 (05:51→17:18)
[2017-08-11 06:04] LABS: PLATELET COUNT, AUTOMATED 183 K/uL (150-450)
[2017-08-11 07:47] VITALS: BP 94/61
[2017-08-11] MEDS: ENOXAPARIN 40 MG/0.4ML SYR SC SCH ×2 (09:00→09:32)
[2017-08-11] MEDS: POTASSIUM CHL 10 MEQ TABCR PO SCH ×2 (09:00→09:32)
[2017-08-11] MEDS: PANTOPRAZOLE SOD 40 MG IV VIAL IVP SCH ×2 (09:29→20:59)
[2017-08-11] MEDS: levETIRAcetam(*)500 MG/5 ML VI 500 MG in NS(*) 0.9% 100 ML BAG 100 ML IV SCH ×2 (09:32→21:03)
[2017-08-11] MEDS ORDERED: KCL/NS* 20 MEQ/1000 ML PREMIX 1,000 ML IV SCH ×2 (10:53→22:28)
[2017-08-11] MEDS: diphenhydrAMINE 50 MG/ML VIAL IVP PRN ×2 (12:52→21:55)
[2017-08-11 13:22] VITALS: BP 116/86
--- NOTE | 2017-08-11 14:30 | Hospitalist Progress Note ---
Subjective Progress Notes Subjective The patient states she threw up multiple times over night. Per nursing staff, no vomiting was recorded. Physical Exam Vital Signs Date Time Temp Pulse Resp B/P (MAP) Pulse Ox O2 Delivery O2 Flow Rate FiO2 08/11/17 13:22 98.7 90 14 116/86 (96) 94 Room Air 08/11/17 05:52 1.0 Intake and Output 08/12/17 07:00 Intake Total 456 ml Output Total 625 ml Balance -169 ml Intake Oral 0 ml IV Total 456 ml Output Urine Total 600 ml Emesis 25 ml # Voids 1 General Appearance: Alert, Awake, No Acute Distress, Afebrile Neuro: No Gross deficits Cardiovascular: Regular Rate and Rhythm Respiratory: Clear to Auscultation GI: Other (Tender to light palpation.) Extremities: Warm, Perfused Psych: Alert & Oriented X3, Other Result Diagram: 08/11/1744 08/11/17543 Assessment and Plan Problems: (1) Dehydration Status: Acute Assessment & Plan: She presented with weakness and passing out with standing on 08/10. She is supposed to be on 12 hours of TPN daily, but hasn't received it for about 4 weeks except for 3 days while in the hospital with last dose being the 10th. She reported that she thought she was getting septic and wanted antibiotics, but based on her evaluation, no antibiotics were started. Her lactate was normal, she had a normal WBC and was afebrile. Her heart rate came down in the ER without intervention, but BP remained low. She has a power port in place. She was given IVF and BP and labs today have improved. Based on records from a recent ER visit in the [facility] , she had similar complaints, desire for admission and antibiotics there. It was explained that she is at high risk for drug resistance bacteria (h/o MRSA), so we need to prudent. Blood cultures are negative to date. CXR is clear. UA is negative. CRP is normal at < 0.5. (2) Severe protein-calorie malnutrition Status: Chronic Assessment & Plan: She is supposed to get TPN for 12 hours daily. She has not had this over the past 3 weeks except for 3 days. Her weight has actually increased since last admission. Will volume resuscitate then consider starting. See above. Will get a prealbumin to establish a baseline. (3) Chronic pain Status: Chronic Assessment & Plan: The patient takes Roxanol 60mg tid and also 20mg q 8hrs prn for breakthrough pain. She is also on Lyrica. Will resume Roxanol, but will give prn and not scheduled for now. Continue Lyrica. (4) Seizure disorder Status: Chronic Assessment & Plan: Continue Keppra. (5) Hx pulmonary embolism Status: Chronic Assessment & Plan: She is not on chronic anticoagulation. Will give Lovenox 40mg a day for prophylaxis. (6) Kenneth-Danlos syndrome type IV Status: Chronic Assessment & Plan: With recurrent fractures and GI issues. (7) Hx of bacterial endocarditis Status: Resolved Assessment & Plan: Cultures negative on 07/16. Repeat cultures negative to date. (8) Recurrent Clostridium difficile diarrhea Status: Chronic Assessment & Plan: She recently had a fecal transplant in April and has had a decrease in her diarrhea with this. (9) UNSPECIFIED ASTHMA, UNCOMPLICATED Status: Chronic Assessment & Plan: Continue Symbicort and Xopenex. Time Spent on Plan of Care: < 30 min Exam Sepsis Risk: No Definite Risk YAHAIRA BASSETT MD Aug 11, 2017 14:30
--- NOTE | 2017-08-11 14:40 | Medical Nutrition Therapy ---
Nutrition Anthropometrics Height (Inches): 66.00 Height (Calculated Centimeters: 167.751028 Weight (Pounds): 133 Weight (Calculated Kilograms): 60.328 [place] Nutrition Score: Very Poor [place] Nutrition Risk Score: 17 Dietary Referral Nutrition Risk Factors: TPN/PPN Nutrition Risk Comment: has been on TPN for 8 years Physical Findings Physical Appearance: BMI 21.5 Skin Appearance Skin Appearance: Edema Edema Location Modifier: Edema Location: Type of Edema: Degree of Edema: Gastrointestinal Symptoms GI Symtoms: Nausea, Vomiting Tube Present: Bowel Sounds: Recent Bowel Pattern: Stool Characteristics: Nutritional Diagnosis Nutritional Risk Acuity 1: TPN/PPN, Fail to Thrive, Malnutrition Past Medical History: Kenneth-Danlos Syndrome Type IV, hypothyroid, gastroparesis, bowel resection, MRSA, severe dehydration, severe protein-calorie malnutrition, failure to thirve Nutritional Acuity: 1-High Nutrition Diagnosis: Increased Nutrient Needs, Inadequate Fluid Intake Nutrition Etiology: Fatique, Physiological Causes Nutrition Problem/Etiology/Sym: Increase nutrient needs related to physiological causes AEB Ehler's-Danlos Syndrome Type IV. Inadequate fluid intake related to fatigue AEB weakness and pt need for IV fluids. Energy Requirement: 1918 ([place] with 1.3 AF and 1.1 SF) Protein Requirement: 60 (1g/kg ) Fluid Requirement: 1800 (30ml/kg ) Diet Type: Diet as Tolerated REJI/REG Nutrition Intervention: Cont diet as ordered, Encourage intake Food Likes: SHERBET Diet Comment To [facility]: FOLLOW VEGETARIAN DIET. BRING SMALL PORTIONS. PROVIDE SHERBET. Nutrition Monitoring & Eval Nutrition Goals: Eat 50-100% Meal RD Patient Assessment Time: [address] Assessment Type: RD Screen Patient Nutrition Acuity: 1-High Follow Up Date: Aug 13, 2017 Nutritional Comment: 08/11 Pt admitted for failure to thrive. Pt has severe dehydration, fatigue, tachycardia and shortness of breath. Pt is weak and passed out with standing up. Pt is colonized with MRSA as well as C. difficile with a history of prior fecal transplants Pt O2 upon admission was within 80%. Pt is on REJI/REG with no oral intake recorded. Pt chooses to use REJI/REG diet more for recreational eating, and relies on calories from TPN. PT is normally on TPN due to Kenneth-Danlos Syndrome Type IV, however she reports that she has not been on her TPN due to logistical issues. Recommend nutrition support to meet nutritional needs. MD will be begin TPN once pt is well hydrated. Continue to monitor pt progress and encourage intake. DELMIS LOPEZ Aug 11, 2017 08:45
[2017-08-11 15:19] VITALS: BP 116/84
[2017-08-11 19:03] VITALS: BP 109/71
[2017-08-11] MEDS ORDERED: FAT EMULSION 20% 250 ML BAG 250 ML IVPB SCH (21:00)
[2017-08-11] MEDS ORDERED: [UNRECOGNIZED DRUG - OTHER] IV SCH (21:00)
[2017-08-11] MEDS: MIRTAZAPINE 15 MG TAB PO SCH (21:00)
[2017-08-11] MEDS: HYDROmorphone HCL 2 MG/ML SDV IVP PRN (21:56)
[2017-08-12] MEDS: HYDROmorphone HCL 2 MG/ML SDV IVP PRN ×4 (00:34→07:25)
[2017-08-12] MEDS: PROMETHAZINE 25 MG/ML 1 ML AMP IVP PRN ×2 (00:46→07:25)
[2017-08-12] MEDS: diphenhydrAMINE 50 MG/ML VIAL IVP PRN (05:11)
[2017-08-12] MEDS: ONDANSETRON 4 MG/2 ML VIAL IVP PRN (05:11)
[2017-08-12 05:55] VITALS: BP 101/61
[2017-08-12] MEDS: BUDESO/FORMOT 160/4.5 MCG 6 GM INH SCH (06:00)
[2017-08-12] MEDS: LEVOTHYROXINE SOD 0.025 MG TAB PO SCH (06:00)
[2017-08-12 07:21] LABS: PLATELET COUNT, AUTOMATED 223 K/uL (150-450)
--- NOTE | 2017-08-12 08:32 | Hospitalist Depart ---
Discharge Summary Reason for Hosp/Final Diag: (1) Dehydration Status: Acute Hospital Course & Plan: She was admitted after a reported syncopal episode. She has not been receiving her TPN at home, but has actually had weight gain since her last admission. Her TPN was resumed in the hospital, but she disconnected her tubing through the night. Arrangements have been reestablished to resume her home TPN through [facility]. (2) Severe protein-calorie malnutrition Status: Chronic Hospital Course & Plan: Her TPN has been arranged as above. (3) Chronic pain Status: Chronic Hospital Course & Plan: She is on chronic treatment with Roxanol 60mg tid and also 20mg q 8hrs prn for breakthrough pain. She is also on Lyrica. (4) Seizure disorder Status: Chronic Hospital Course & Plan: She is on chronic treatment with Keppra. (5) Hx pulmonary embolism Status: Chronic Hospital Course & Plan: She is not on chronic anticoagulation. (6) Kenneth-Danlos syndrome type IV Status: Chronic Hospital Course & Plan: With recurrent fractures and GI issues. (7) Hx of bacterial endocarditis Status: Resolved Hospital Course & Plan: Her cultures have been negative. (8) Recurrent Clostridium difficile diarrhea Status: Chronic Hospital Course & Plan: She recently had a fecal transplant in April and has had a decrease in her diarrhea with this. (9) UNSPECIFIED ASTHMA, UNCOMPLICATED Status: Chronic Hospital Course & Plan: She is on chronic treatment with Symbicort and Xopenex. Departure Latest Vital Signs Vital Signs 08/11/17 08/12/17 08/12/17 05:52 05:55 05:57 Temp 97.4 Pulse 90 Resp 14 B/P (MAP) 101/61 (74) Pulse Ox 97 O2 Delivery Room Air O2 Flow Rate 1.0 Weight (Pounds): 133 Weight (Ounces): 0.3 Result Diagram: 08/12/1711 08/12/17710 Condition: Improved Discharge: Home, Self Care Discharge Instructions Home Meds Reported Medications Pregabalin (LYRICA) 150 Mg Capsule, 150 MG PO TID, CAPSULE 08/10/17 Promethazine Hcl (PROMETHAZINE HCL) 25 Mg Tablet, 25 MG PO Q4H Y for NAUSEA, TAB 08/10/17 Morphine Sulfate 20 MG/ML Oral Solution (ROXANOL 20 MG/ML) 100 Mg/5 Ml Solution , 20 MG PO Q8H Y for PAIN, ML 07/16/17 Morphine Sulfate 20 MG/ML Oral Solution (ROXANOL 20 MG/ML) 100 Mg/5 Ml Solution , 60 MG PO TID, ML 07/16/17 Budesonide/Formoterol Fumarate (SYMBICORT 160-4.5 MCG INHALER) 10.2 Gm Inh, 2 PUFF INH BID, INH 07/16/17 Omeprazole (OMEPRAZOLE) 20 Mg Capsule.dr, 1 CAP PO BID, CAP 07/16/17 Dicyclomine Hcl (DICYCLOMINE HCL) 20 Mg Tablet, 20 MG PO Q6H 07/16/17 Lubiprostone (AMITIZA) 24 Mcg Capsule, 24 MCG PO BID, CAPSULE 07/16/17 Levothyroxine Sodium (LEVOTHYROXINE SODIUM) 50 Mcg Tablet, 25 MCG PO QDAY, TAB 07/16/17 Diphenhydramine Hcl (DIPHENHYDRAMINE HCL) 25 Mg Capsule, 50 MG PO Q2-4H for itching., CAPSULE 07/16/17 Linaclotide (LINZESS) 145 Mcg Capsule, 145 MCG PO DAILY, CAPSULE 07/16/17 Potassium Chloride (POTASSIUM CHLORIDE) 10 Meq Capsule.er, 10 MEQ PO DAILY 07/16/17 Lorazepam (LORAZEPAM) 1 Mg Tab, 1 TAB PO TID Y for SEIZURE, TAB 07/16/17 Clobetasol Propionate/Emoll (CLOBETASOL EMOLLIENT 0.05% CRM) 15 Gm Cream..g., 0 TP BID 07/16/17 Lipase/Protease/Amylase (ALLYSSA [place] 6,000 UNITS CAPSULE) 1 Each Capsule.dr, 1 EACH PO 07/16/17 Mirtazapine (MIRTAZAPINE) 15 Mg Tablet, 15 MG PO HS 07/16/17 Naloxone HCl (Narcan) 4 Mg/Actuation [place], 1 SPRAY NS Y for narcotic overdose 07/16/17 Levetiracetam (LEVETIRACETAM) 500 Mg Tab.er.24h, 500 MG PO BID, TAB 07/16/17 Ondansetron (ONDANSETRON ODT) 4 Mg Tab.rapdis, 8 MG PO Q4H Y for NAUSEA 07/16/17 Diet: Regular (With supplemental TPN) Activity: As Tolerated Venous Thromboembolism Antithrombotics Is Pt On Any Antithrombotics?: No GEORGE ORTEZ DO Aug 12, 2017 08:32
[2017-08-12] MEDS: PANTOPRAZOLE SOD 40 MG IV VIAL IVP SCH (08:52)
[2017-08-12] MEDS: levETIRAcetam(*)500 MG/5 ML VI 500 MG in NS(*) 0.9% 100 ML BAG 100 ML IV SCH (08:54)
[2017-08-12] MEDS: ENOXAPARIN 40 MG/0.4ML SYR SC SCH (08:54)
== END 2017-08-12 13:10 | disposition home or self-care (01) | DRG 640 ==
LOC: ER 12:28 → INTOOBSV 15:54 → MED 15:54 → OBSVTOIN 08-11
PROVIDERS: ADMIT Internal Medicine; ATTEND Internal Medicine
DX: E86.0 Dehydration (principal); E43 Unspecified severe protein-calorie malnutrition; Q79.6 Ehlers-Danlos syndromes; F11.20 Opioid dependence, uncomplicated; G89.29 Other chronic pain; R62.7 Adult failure to thrive; G40.909 Epilepsy, unspecified, not intractable, without status epilepticus; F45.9 Somatoform disorder, unspecified; J45.909 Unspecified asthma, uncomplicated; I95.9 Hypotension, unspecified; R00.0 Tachycardia, unspecified; R55 Syncope and collapse; K31.84 Gastroparesis; D64.9 Anemia, unspecified; E03.9 Hypothyroidism, unspecified; R11.10 Vomiting, unspecified; G62.9 Polyneuropathy, unspecified; F41.8 Other specified anxiety disorders; Z86.711 Personal history of pulmonary embolism; Z68.21 Body mass index [BMI] 21.0-21.9, adult; Z86.14 Personal history of Methicillin resistant Staphylococcus aureus infection; Z88.8 Allergy status to other drugs, medicaments and biological substances; Z88.1 Allergy status to other antibiotic agents; Z88.2 Allergy status to sulfonamides; Z86.718 Personal history of other venous thrombosis and embolism
CPT/HCPCS: 36415; 71046; 81001; 82040; 82247; 82310; 82330; 82374; 82435; 82565; 82947; 83605; 83690; 83735; 84075; 84132; 84134; 84155; 84295; 84439; 84443; 84450; 84460; 84481; 84520; 84703; 85025; 85610; 85730; 86140; 87040; 87070; 87077; 87088; 87186; 93005; 94640; 99285; A4353; C9113; G0378; J1170; J1200; J1642; J1644; J1650; J1953; J2405; J2550; J2997; J3480; J7030; J7050; Q0163

== ENCOUNTER 2017-08-21 10:06 | Emergency (ER) | payer MEDICARE, MEDICAID ==
[2017-08-21] MEDS ORDERED: levETIRAcetam(*)500 MG/5 ML VI 500 MG in NS(*) 0.9% 100 ML BAG 100 ML IVPB ONE (10:40)
[2017-08-21] MEDS ORDERED: NS(*) 0.9% 1000 ML BAG 1,000 ML IV ONE (10:40)
[2017-08-21] MEDS ORDERED: ONDANSETRON 4 MG/2 ML VIAL IVP ONE (10:40)
[2017-08-21 12:23] LABS: PLATELET COUNT, AUTOMATED 236 K/uL (150-450)
--- NOTE | 2017-08-21 13:06 | ER Report ---
History and Physical Time Seen By MD: 10:15 Hx. of Stated Complaint: pt just dc'd from hospital and is nowhaving weakness, n/v and generalized pain HPI/ROS This is a 32-year-old female who has a complicated past medical history. She lives in [place], but has been in [place] for the past month pain in her cousin. This is her 3rd presentation to the emergency department since she's been in [place]. She was admitted to the hospital the last 2 times. She states that she has been unable to tolerate any by mouth, and says she has become extremely dehydrated. She also complains of diffuse abdominal pain. This is her usual pain from her chronic illness. Looking through the electronic medical records from [place] where she gets her care, her diagnosis is still unclear, although she states that she has been diagnosed with type IV Kenneth Danlos Syndrome. She usually gets TPN, but says she has been unable to use it?? She is asking for dilaudid/phenergan/zofran IV. Remainder of the 14 system rev: Yes Allergies: Coded Allergies: Sulfa (Sulfonamide Antibiotics) (Verified Allergy, Severe, 08/21/17) adhesive tape (Verified Allergy, Severe, 08/21/17) azithromycin (Verified Allergy, Severe, 08/21/17) ketamine (Verified Allergy, Severe, ANAPHYLAXIS, 08/21/17) metoclopramide (Verified Allergy, Severe, 08/21/17) vancomycin (Verified Allergy, Severe, 08/21/17) IV VANCOMYCIN; PATIENT CAN TAKE ORAL erythromycin base (Verified Allergy, Unknown, 08/21/17) Home Meds Reported Medications Pregabalin (LYRICA) 150 Mg Capsule, 150 MG PO TID, CAPSULE 08/10/17 Promethazine Hcl (PROMETHAZINE HCL) 25 Mg Tablet, 25 MG PO Q4H Y for NAUSEA, TAB 08/10/17 Morphine Sulfate 20 MG/ML Oral Solution (ROXANOL 20 MG/ML) 100 Mg/5 Ml Solution , 20 MG PO Q8H Y for PAIN, ML 07/16/17 Morphine Sulfate 20 MG/ML Oral Solution (ROXANOL 20 MG/ML) 100 Mg/5 Ml Solution , 60 MG PO TID, ML 07/16/17 Budesonide/Formoterol Fumarate (SYMBICORT 160-4.5 MCG INHALER) 10.2 Gm Inh, 2 PUFF INH BID, INH 07/16/17 Omeprazole (OMEPRAZOLE) 20 Mg Capsule.dr, 1 CAP PO BID, CAP 07/16/17 Dicyclomine Hcl (DICYCLOMINE HCL) 20 Mg Tablet, 20 MG PO Q6H 07/16/17 Lubiprostone (AMITIZA) 24 Mcg Capsule, 24 MCG PO BID, CAPSULE 07/16/17 Levothyroxine Sodium (LEVOTHYROXINE SODIUM) 50 Mcg Tablet, 25 MCG PO QDAY, TAB 07/16/17 Diphenhydramine Hcl (DIPHENHYDRAMINE HCL) 25 Mg Capsule, 50 MG PO Q2-4H for itching., CAPSULE 07/16/17 Linaclotide (LINZESS) 145 Mcg Capsule, 145 MCG PO DAILY, CAPSULE 07/16/17 Potassium Chloride (POTASSIUM CHLORIDE) 10 Meq Capsule.er, 10 MEQ PO DAILY 07/16/17 Lorazepam (LORAZEPAM) 1 Mg Tab, 1 TAB PO TID Y for SEIZURE, TAB 07/16/17 Clobetasol Propionate/Emoll (CLOBETASOL EMOLLIENT 0.05% CRM) 15 Gm Cream..g., 0 TP BID 07/16/17 Lipase/Protease/Amylase (ALLYSSA IVERSON 6,000 UNITS CAPSULE) 1 Each Capsule.dr, 1 EACH PO 07/16/17 Mirtazapine (MIRTAZAPINE) 15 Mg Tablet, 15 MG PO HS 07/16/17 Naloxone HCl (Narcan) 4 Mg/Actuation [place], 1 SPRAY NS Y for narcotic overdose 07/16/17 Levetiracetam (LEVETIRACETAM) 500 Mg Tab.er.24h, 500 MG PO BID, TAB 07/16/17 Ondansetron (ONDANSETRON ODT) 4 Mg Tab.rapdis, 8 MG PO Q4H Y for NAUSEA 07/16/17 Reviewed Nurses Notes: Yes Old Medical Records Reviewed: Yes Hx Smoking: No Smoking Status: Never Smoker Exposure to Second Hand Smoke?: No Hx Substance Use Disorder: No (OPIODS AND POP) Hx Alcohol Use: Yes Constitutional Vital Sign - Last 24 Hours 08/21/17 08/21/17 10:13 13:15 Temp 98.4 Pulse 96 84 Resp 16 16 B/P (MAP) 125/93 113/80 (91) Pulse Ox 97 97 O2 Delivery Room Air Physical Exam General Appearance: The patient is alert, has no immediate need for airway protection and no current signs of toxicity. Eyes: Pupils equal and round no injection. Respiratory: Chest is non tender, lungs are clear to auscultation. Cardiac: regular rate and rhythm Gastrointestinal: Abdomen is soft and non tender, no masses, bowel sounds normal. Extremities have full range of motion and are non tender. Skin: No rashes or lesions. DIFFERENTIAL DIAGNOSIS: After history and physical exam differential diagnosis was considered for cyclic vomiting, infection, sepsis, , somatization disorder Medical Decision Making Data Points Result Diagram: 08/21/17 1208 08/21/17 1208 Laboratory Hematology Test 08/21/17 11:45 08/21/17 12:08 Urine Color Yellow Urine Clarity Clear Urine pH 7.0 pH (4.8-9.5) Urine Specific [place] 1.009 Urine Protein Negative mg/dL (NEGATIVE) Urine Glucose (UA) Negative mg/dL (NEGATIVE) Urine Ketones Negative mg/dL (NEGATIVE) Urine Blood Negative (NEGATIVE) Urine Nitrite Negative (NEGATIVE) Urine Bilirubin Negative (NEGATIVE) Urine Urobilinogen Negative mg/dL (0.2-1.9) Urine Leukocyte Esterase Negative (NEGATIVE) Urine RBC <1 /HPF (0-2/HPF) Urine WBC <1 /HPF (0-5/HPF) Urine Squamous Epithelial Cells Many /LPF (</=FEW) Urine Bacteria Negative /HPF (NONE-FEW) Urine Mucus Few /HPF (NONE-FEW) Urine HCG, Qualitative Negative (NEGATIVE) Red Blood Count 4.33 M/uL (4.17-5.56) Mean Corpuscular Volume 81.8 fL (80.0-96.0) Mean Corpuscular Hemoglobin 27.5 pg (26.0-33.0) Mean Corpuscular Hemoglobin Concent 33.6 g/dL (32.0-36.0) Red Cell Distribution Width 13.5 % (11.5-14.5) Mean Platelet Volume 9.7 fL (7.2-11.1) Neutrophils (%) (Auto) 84.4 % (39.4-72.5) Lymphocytes (%) (Auto) 11.6 % (17.6-49.6) Monocytes (%) (Auto) 3.6 % (4.1-12.4) Eosinophils (%) (Auto) 0.0 % (0.4-6.7) Basophils (%) (Auto) 0.4 % (0.3-1.4) Nucleated RBC Relative Count (auto) 0.0 /100WBC Neutrophils # (Auto) 4.5 K/uL (2.0-7.4) Lymphocytes # (Auto) 0.6 K/uL (1.3-3.6) Monocytes # (Auto) 0.2 K/uL (0.3-1.0) Eosinophils # (Auto) 0.0 K/uL (0.0-0.5) Basophils # (Auto) 0.0 K/uL (0.0-0.1) Nucleated RBC Absolute Count (auto) 0.00 K/uL Sodium Level 142 mmol/L (137-145) Potassium Level 3.6 mmol/L (3.5-5.0) Chloride Level 107 mmol/L (98-107) Carbon Dioxide Level 23 mmol/L (22-31) Blood Urea Nitrogen 10 mg/dl (7-18) Creatinine 0.60 mg/dl (0.52-1.04) Glomerular Filtration Rate Calc > 60.0 Random Glucose 110 mg/dl (75-110) Calcium Level 8.5 mg/dl (8.4-10.2) Total Bilirubin 0.6 mg/dl (0.2-1.3) Aspartate Amino Transf (AST/SGOT) 17 U/L (0-35) Alanine Aminotransferase (ALT/SGPT) 17 U/L (0-56) Alkaline Phosphatase 71 U/L (0-126) Total Protein 6.9 gm/dl (6.3-8.2) Albumin 3.9 g/dl (3.5-5.0) Chemistry Test 08/21/17 11:45 08/21/17 12:08 Urine Color Yellow Urine Clarity Clear Urine pH 7.0 pH (4.8-9.5) Urine Specific [place] 1.009 Urine Protein Negative mg/dL (NEGATIVE) Urine Glucose (UA) Negative mg/dL (NEGATIVE) Urine Ketones Negative mg/dL (NEGATIVE) Urine Blood Negative (NEGATIVE) Urine Nitrite Negative (NEGATIVE) Urine Bilirubin Negative (NEGATIVE) Urine Urobilinogen Negative mg/dL (0.2-1.9) Urine Leukocyte Esterase Negative (NEGATIVE) Urine RBC <1 /HPF (0-2/HPF) Urine WBC <1 /HPF (0-5/HPF) Urine Squamous Epithelial Cells Many /LPF (</=FEW) Urine Bacteria Negative /HPF (NONE-FEW) Urine Mucus Few /HPF (NONE-FEW) Urine HCG, Qualitative Negative (NEGATIVE) White Blood Count 5.3 k/uL (4.5-11.0) Red Blood Count 4.33 M/uL (4.17-5.56) Hemoglobin 11.9 g/dL (12.0-16.0) Hematocrit 35.4 % (34.0-47.0) Mean Corpuscular Volume 81.8 fL (80.0-96.0) Mean Corpuscular Hemoglobin 27.5 pg (26.0-33.0) Mean Corpuscular Hemoglobin Concent 33.6 g/dL (32.0-36.0) Red Cell Distribution Width 13.5 % (11.5-14.5) Platelet Count 236 K/uL (150-450) Mean Platelet Volume 9.7 fL (7.2-11.1) Neutrophils (%) (Auto) 84.4 % (39.4-72.5) Lymphocytes (%) (Auto) 11.6 % (17.6-49.6) Monocytes (%) (Auto) 3.6 % (4.1-12.4) Eosinophils (%) (Auto) 0.0 % (0.4-6.7) Basophils (%) (Auto) 0.4 % (0.3-1.4) Nucleated RBC Relative Count (auto) 0.0 /100WBC Neutrophils # (Auto) 4.5 K/uL (2.0-7.4) Lymphocytes # (Auto) 0.6 K/uL (1.3-3.6) Monocytes # (Auto) 0.2 K/uL (0.3-1.0) Eosinophils # (Auto) 0.0 K/uL (0.0-0.5) Basophils # (Auto) 0.0 K/uL (0.0-0.1) Nucleated RBC Absolute Count (auto) 0.00 K/uL Glomerular Filtration Rate Calc > 60.0 Calcium Level 8.5 mg/dl (8.4-10.2) Total Bilirubin 0.6 mg/dl (0.2-1.3) Aspartate Amino Transf (AST/SGOT) 17 U/L (0-35) Alanine Aminotransferase (ALT/SGPT) 17 U/L (0-56) Alkaline Phosphatase 71 U/L (0-126) Total Protein 6.9 gm/dl (6.3-8.2) Albumin 3.9 g/dl (3.5-5.0) Urinalysis Test 08/21/17 11:45 Urine Color Yellow Urine Clarity Clear Urine pH 7.0 pH (4.8-9.5) Urine Specific [place] 1.009 Urine Protein Negative mg/dL (NEGATIVE) Urine Glucose (UA) Negative mg/dL (NEGATIVE) Urine Ketones Negative mg/dL (NEGATIVE) Urine Blood Negative (NEGATIVE) Urine Nitrite Negative (NEGATIVE) Urine Bilirubin Negative (NEGATIVE) Urine Urobilinogen Negative mg/dL (0.2-1.9) Urine Leukocyte Esterase Negative (NEGATIVE) Urine RBC <1 /HPF (0-2/HPF) Urine WBC <1 /HPF (0-5/HPF) Urine Squamous Epithelial Cells Many /LPF (</=FEW) Urine Bacteria Negative /HPF (NONE-FEW) Urine Mucus Few /HPF (NONE-FEW) Urine HCG, Qualitative Negative (NEGATIVE) ED Course/Re-evaluation Clinical Indication for ER IV: Hydration ED Course 32-year-old female lives in [place], but visiting [place] for the past month. Her 3rd presentation to the emergency department for cyclic vomiting symptoms. I reviewed her electronic medical record which includes documentation from [facility] in [place]. It seems as if her diagnosis is still unclear. She was given a liter of saline and Zofran for nausea. Her labs were normal. Her urine is normal. There are no indications of dehydration. I had a conversation with her about the fact that she should get back to [place] and continue her regular medical care. I told her that she was hydrated and nourished well enough to take her flight today back to [place]. He was amenable with the plan, and says she has a flight scheduled for 10 PM tonight. Decision to Disposition Date: Aug 21, 2017 Decision to Disposition Time: 13:05 Depart Departure Latest Vital Signs Vital Signs Date Time Temp Pulse Resp B/P (MAP) Pulse Ox O2 Delivery O2 Flow Rate FiO2 08/21/17 13:15 84 16 113/80 (91) 97 Room Air 08/21/17 10:13 98.4 Impression: Primary Impression: Intractable nausea and vomiting Condition: Improved Disposition: HOME OR SELF-CARE Patient Instructions: Acute Nausea and Vomiting (ED) Problem Qualifiers Primary Impression: Intractable nausea and vomiting Vomiting type: cyclical vomiting Qualified Codes: G43.A1 - Cyclical vomiting , intractable ANANYA BARTHOLOMEW MD Aug 21, 2017 13:06
[2017-08-21] MEDS ORDERED: HEPARIN FLSH (PORT) 500 UN/5ML ONE (13:10)
[2017-08-21 13:15] VITALS: BP 113/80
== END 2017-08-21 13:20 | disposition home or self-care (01) ==
LOC: ER 10:08
DX: G43.A1 Cyclical vomiting, in migraine, intractable (principal)
CPT/HCPCS: 81001; 81025; 85025; 96365; 96375; 99284; J1642; J1953; J2405; J7030; J7050; 82040; 82247; 82310; 82374; 82435; 82565; 82947; 84075; 84132; 84155; 84295; 84450; 84460; 84520